=== PATIENT | male | born 1990 | race Two or more races ===

== ENCOUNTER 2023-12-22 08:26 | Inpatient (IN) | payer OTHER ==
[~2023-12-22] VITALS: Ht 180.3 cm; Wt 98.5 kg
[2023-12-22 08:45] VITALS: O2SAT 96
--- NOTE | 2023-12-22 09:12 | ED.PDOC ---
HPI (NEURO) HPI Comments 33-year-old male with no PMHx brought in by EMS presents s/p seizure-acitivity. Per EMS, staff on scene report that patient was asleep in his work truck and then had a "shaking-like activity" lasting approximately 30 seconds to 1 minute. Patient arrives with some oral trauma. Patient denies any history of seizures before in the past. Patient mentions that the last thing he remembers was that he was asleep. Patient is A&Ox4 and answering all questions appropriately. Chief Complaint: Seizure Time Seen by MD: 08:52 Primary Care Provider: NONE Reviewed Notes: Medications, Allergies Information Source: Patient, Emergency Med Personnel Mode of Arrival: EMS Severity: Moderate Headache Severity: None Timing: Minutes Duration: Since onset Prehospital treatment: None Seizure Quality: Shaking Seizure Location: Generalized Onset: At rest Circumstances: Spontaneous History of: None Past Medical History PAST MEDICAL HISTORY: HTN Surgical History: Denies all surgeries Family History Family History: Reviewed,noncontributory to illness Social History Smoker: Non-Smoker Alcohol: Denies ETOH Use Drugs: Denies Drug Use Lives In: Home Constitutional: denies: chills, diaphoresis, fatigue, fever, malaise, sweats, weakness, others EENTM: denies: blurred vision, double vision, ear bleeding, ear discharge, ear drainage, ear pain, ear ringing, eye pain, eye redness, hearing loss, mouth pain, mouth swelling, nasal discharge, nose bleeding, nose congestion, nose pain, photophobia, tearing, throat pain, throat swelling, voice changes, others Respiratory: denies: cough, hemoptysis, orthopnea, SOB at rest, shortness of breath, SOB with excertion, stridor, wheezing, others Cardiovascular: denies: chest pain, dizzy spells, diaphoresis, Dyspnea on exertion, edema, irregular heart beat, left arm pain, lightheadedness, palpitations, PND, syncope, others Gastrointestinal: denies: abdomen distended, abdominal pain, blood streaked bowels, constipated, diarrhea, dysphagia, difficulty swallowing, hematemesis, melena, nausea, poor appetite, poor fluid intake, rectal bleeding, rectal pain, vomiting, others Genitourinary: denies: burning, dysuria, flank pain, frequency, hematuria, incontinence, penile discharge, penile sore, pain, testicle pain, testicle swelling, urgency, others Neurological: reports: seizure; denies: dizziness, fainting, headache, left sided numbness, left sided weakness, numbness, paresthesia, pre-existing deficit, right sided numbness, right sided weakness, speech problems, tingling, tremors, weakness, others Musculoskeletal: denies: back pain, gout, joint pain, joint swelling, muscle pain, muscle stiffness, neck pain, others Integumetry: denies: bruises, change in color, change in hair/nails, dryness, laceration, lesions, lumps, rash, wounds, others Allergic/Immunocompromised: denies: Difficulty Healing, Frequent Infections, Hives, Itching, others Hematologic/Lymphatic: denies: anemia, blood clots, easy bleeding, easy bruising, swollen glands, others Endocrine: denies: excessive hunger, excessive sweating, excessive thirst, excessive urination, flushing, intolerance to cold, intolerance to heat, unexplained weight gain, unexplained weight loss, others Psychiatric: denies: anxiety, bipolar disorder, depression, hopeless, panic disorder, schizophrenia, sleepless, suicidal, others All Other Systems: Reviewed and Negative Physical Exam General Appearance: Mild Distress, Normal, Other (Postictal state) HEENT: Normal ENT Inspection, PERRL/EOMI, Pharynx Normal, TMs Normal, Other (Tongue bite) Neck: Full Range of Motion, Non-Tender, Normal, Normal Inspection Respiratory: Chest Non-Tender, Lungs Clear, No Accessory Muscle Use, No Respiratory Distress, Normal Breath Sounds Cardiovascular: No Edema, No JVD, No Murmur, No Gallop, Normal Peripheral Pulses, Regular Rate/Rhythm Breast Exam: Deferred Gastrointestinal: No Organomegaly, Non Tender, No Pulsatile Mass, Normal Bowel Sounds, Soft Genitalia: Deferred Pelvic: Deferred Rectal: Deferred Extremities: Decreased range of motion, No calf tenderness, Normal capillary refill, Normal inspection, Normal range of motion, No pedal edema, Tender Musculoskeletal : Location: Left Extremity Location: Shoulder Apperance: Deformity, Limited ROM, Tenderness: Moderate, Tenderness: Severe Neurologic: Alert, 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 Was a procedure done?: Yes Sedation Sedation?: Yes Informed consent obtained: Yes Sedation start time: 11:00 Sedation end time: 11:05 Sedation total time: 05 Sedation provider statement: Patient accepted the procedure well Reduction Indication: Dislocation Sedation: Consents obtained, Sedation as ordered Intra-articular anesthetic isidro: No Post-reduction x-ray show: Reduction, Good Alignment Informed consent obtained: Yes Risks/benefits/alt described: Yes Notes Closed reduction complete patient accepted the procedure one Shoulder immobilizing ordered Differential Diagnosis (SZ) Seizure: Hypocalcemia, Hypoglycemia, Hyponatremia, Mass Lesion, Other (1st seizure dislocation left shoulder) CVA: Drug Overdose, Electrolyte Imbalance, Hypoglycemia, Mass Lesion General Weakness: Anemia, Dehydration, Dysrhythmia, Electrolyte imbalance, Hypoglycemia Headache: Mass Lesion, Post-Traumatic X-Ray, Labs, Meds, VS Vital Signs Date Time Temp Pulse Resp B/P (MAP) Pulse Ox O2 Delivery O2 Flow Rate FiO2 12/22/23 18:00 98.7 84 15 115/65 (82) 95 98.7 12/22/23 16:00 81 15 122/65 (84) 97 12/22/23 14:00 98.3 73 11 102/52 (69) 97 98.3 12/22/23 12:00 82 13 112/76 (88) 96 12/22/23 11:10 81 14 120/71 (87) 95 12/22/23 11:05 77 15 123/70 (87) 93 12/22/23 11:00 97.9 83 15 125/83 (97) 93 97.9 12/22/23 10:59 76 13 93 2.0 28 77 16 93 88 93 12/22/23 10:52 75 12/22/23 10:26 78 12/22/23 10:00 72 13 131/89 (103) 96 12/22/23 09:33 78 12/22/23 09:00 68 14 114/56 (75) 98 12/22/23 08:49 98.9 64 15 108/52 (70) 95 98.9 12/22/23 08:45 96 Nasal Cannula* 4 36 12/22/23 08:45 96 Nasal Cannula* 4 36 12/22/23 08:30 98.1 92 18 129/67 (87) 94 Lab Test 12/22/23 16:30 12/22/23 09:49 12/22/23 08:35 Range/Units D-Dimer, Quantitative 3.41 H 0.0-0.49 mg/L FEU White Blood Count 12.0 H 4.4-10.8 10^3/uL Red Blood Count 4.94 4.5-5.90 10^6/uL Hemoglobin 15.7 13.5-17.5 g/dL Hematocrit 46.8 41.0-53.0 % Mean Corpuscular Volume 94.7 80.0-100.0 fL Mean Corpuscular Hemoglobin 31.8 28.0-32.0 pg Mean Corpuscular Hemoglobin Concent 33.6 32.0-36.0 g/dL Red Cell Distribution Width 14.6 H 11.8-14.3 % Platelet Count 231 140-450 10^3/uL Mean Platelet Volume 7.5 6.9-10.8 fL Neutrophils (%) (Auto) 81.7 H 37.0-80.0 % Lymphocytes (%) (Auto) 10.8 10.0-50.0 % Monocytes (%) (Auto) 6.9 0.0-12.0 % Eosinophils (%) (Auto) 0.3 0.0-7.0 % Basophils (%) (Auto) 0.3 0.0-2.0 % Neutrophils # (Auto) 9.8 H 1.6-8.6 10 ^3/uL Lymphocytes # (Auto) 1.3 0.4-5.4 10 ^3/uL Monocytes # (Auto) 0.8 0-1.3 10 ^3/uL Eosinophils # (Auto) 0 0-0.8 10 ^3/uL Basophils # (Auto) 0 0-0.2 10 ^3/uL Nucleated Red Blood Cells 0.0 % Sodium Level 141 136-145 mmol/L Potassium Level 3.9 3.5-5.1 mmol/L Chloride Level 108 H 98-107 mmol/L Carbon Dioxide Level 29 20-31 mmol/L Anion Gap 4 L 5-15 Blood Urea Nitrogen 13 9-23 mg/dL Creatinine 1.29 0.700-1.30 mg/dL Glomerular Filtration Rate Calc 76 >90 mL/min BUN/Creatinine Ratio 10.1 10.0-20.0 Serum Glucose 107 H 74-106 mg/dL Calcium Level 9.6 8.7-10.4 mg/dL Magnesium Level 2.5 1.6-2.6 mg/dL Total Bilirubin 0.6 0.2-1.0 mg/dL Aspartate Amino Transferase (AST) 27 13-40 U/L Alanine Aminotransferase (ALT) 35 7-40 U/L Alkaline Phosphatase 60 46-116 U/L Total Protein 6.9 5.7-8.2 g/dL Albumin 4.4 3.2-4.8 g/dL Plasma/Serum Blood Alcohol < 3.0 <10 mg/dL Urine Color Light-yellow Yellow Urine Clarity Hazy H Clear Urine pH 5.5 5.0-9.0 Urine Specific [place] 1.009 1.001-1.035 Urine Protein 1+ H Negative Urine Ketones Negative Negative Urine Blood 2+ H Negative /uL Urine Nitrite Negative Negative Urine Bilirubin Negative Negative Urine Urobilinogen Normal Negative mg/dL Urine Leukocyte Esterase Negative Negative /uL Urine RBC <1 0 - 3 /hpf Urine WBC 1 0 - 3 /hpf Urine Squamous Epithelial Cells Few <5 /hpf Urine Bacteria Few H None Seen /hpf Urine Hyaline Casts Few 0 - 2 /lpf Urine Mucus Few None Seen Urine Glucose Normal Normal mg/dL Urine Opiates Screen Neg NEGATIVE Urine Fentanyl Screen Neg NEGATIVE Urine Barbiturates Screen Neg NEGATIVE Urine Phencyclidine Screen Neg NEGATIVE Urine Amphetamines Screen Neg NEGATIVE Urine Benzodiazepines Screen Neg NEGATIVE Urine Cocaine Screen Neg NEGATIVE Urine Cannabinoids Screen Neg NEGATIVE Current Medications Medications (Trade) Dose Ordered Sig/Caren Route Start Time Stop Time Status Last Admin Lorazepam (Ativan Inj) 1 mg ONCE ONCE IV 12/22/23 09:00 12/22/23 09:01 DC 12/22/23 09:20 Sodium Chloride 500 ml @ 500 mls/hr Q1H ONCE IVB 12/22/23 09:15 12/22/23 10:14 DC 12/22/23 09:15 Sodium Chloride 1,000 ml @ 150 mls/hr Q6H40M ONCE IV 12/22/23 09:15 12/22/23 15:54 DC 12/22/23 09:15 Midazolam HCl (Versed Injection) 5 mg ONCE ONCE IV 12/22/23 10:30 12/22/23 10:31 DC 12/22/23 11:01 Propofol (Diprivan) 5 mg ONCE ONCE IV 12/22/23 11:30 12/22/23 11:31 DC 12/22/23 11:03 Lorazepam (Ativan Inj) 1 mg ONCE ONCE IV 12/22/23 15:45 12/22/23 15:46 DC 12/22/23 15:43 Acetaminophen/ Hydrocodone Bitart ([place] 5/325MG Tab) 1 tab ONCE ONCE PO 12/22/23 18:00 12/22/23 18:01 DC 12/22/23 18:05 X-Ray, Labs, Meds, VS Comment Course in the emergency department eventful Patient with a 1st seizure disorder found asleep in his bed with a 32nd-1 minute of seizure disorder tonic-clonic Blood pressure 129/67 blood pressure 126 Chest x-ray is normal EKG shows normal sinus rhythm at 78 CT head is normal X-ray to the left shoulder shows inferior anterior [place] [address]33 with 81.7% neutrophils normal H&H Urine shows 1+ protein 2+ blood few bacteria UDS negative ETOH less than 3.0 CMP all normal Magnesium 2.5 Patient was on tramadol for back pain which sometimes can be the cause for seizures Patient started to desaturate and feeling short of breath D-dimer pending patient most probably has pulmonary embolism Dr. Manning to follow up Time of 1ST Reevaluation: 09:22 Reevaluation 1ST: Unchanged Time of 2ND Reevaluation: 11:09 Reevaluation 2ND: Improved Patient Education/Counseling: Diagnosis, Treatment, Prognosis Family Education/Counseling: No Family Present Assigned to Dr. dr manning Change of Shift?: Yes Departure 1 Departure Time of Disposition: 12:38 Impression: Primary Impression: Seizure disorder Additional Impressions: Open wound of tongue due to bite Dislocation, shoulder, anterior Qualified Codes: S43.015A - Anterior dislocation of left humerus, initial encounter Hematuria Qualified Codes: R31.1 - Benign essential microscopic hematuria Chronic back pain Qualified Codes: M54.50 - Low back pain, unspecified; G89.29 - Other chronic pain History of hypertension Disposition: 01 HOME / SELF CARE / HOMELESS Condition: Fair Additional Instructions: You need to follow up with an orthopedist and also a neurologist At this time you can not drive by law until you see the neurologist for clearance You are taking tramadol and that could cause you to have seizures so please stop the tramadol e-Prescriptions Cyclobenzaprine Hcl (Cyclobenzaprine Hcl) 10 Mg Tab 10 MG PO TID for 10 Days, #30 TAB Prov: FATUMA WISE MD 12/22/23 Hydrocodone-Acetaminophen (Hydrocodone Bitartrate/AC 5-325 mg) 1 Tab Tab 1 TAB PO TID for 5 Days, #15 TAB Prov: FATUMA WISE MD 12/22/23 Diclofenac Potassium (Diclofenac Potassium) 50 Mg Tab 1 TAB PO TIDP for 10 Days, #30 TAB Prov: FATUMA WISE MD 12/22/23 Discharged With: Self, Relative, Spouse Critical Care Note Critical Care Time?: No Stability Stability form required: No Heart Score Heart Score: Heart Score Response (Comments) Value History N/A 0 EKG Normal 0 Age <45 0 Risk Factors No known risk factors 0 Troponin N/A 0 Total 0 I personally scribed for FATUMA WISE MD ([email or web address]) on 12/22/23 at 09:11. Electronically submitted by Vu Kumar ([email or web address]). FATUMA WISE MD Dec 22, 2023 09:11
[2023-12-22] MEDS: SODIUM CHLORIDE 0.9% 500 ML IVB ONE (09:15)
[2023-12-22] MEDS: SODIUM CHLORIDE 0.9% 1,000 ML IV ONE (09:15)
[2023-12-22] MEDS: LORazepam 2MG/ML-1ML VIAL IV ONE ×3 (09:19→15:43)
--- NOTE | 2023-12-22 09:38 | DVH ---
PROCEDURE: Left shoulder radiographs. INDICATION: 33 years old, Male; shoulder pain. TECHNIQUE: 2 views of the left shoulder were obtained. COMPARISON: None FINDINGS: There is anterior inferior positioning of the humeral head relative to the glenoid consiste nt with anterior glenohumeral joint dislocation. Question Hill-Sachs lesion. IMPRESSION: 1. Anterior glenohumeral joint dislocation.
--- NOTE | 2023-12-22 09:49 | DVH ---
XY CHEST TWO VIEWS ROUTINE CLINICAL HISTORY: SZ COMPARISON: None TECHNIQUE: Frontal and lateral view of the chest was obtained FINDINGS: Lines and Tubes: None Lungs: No focal consolidation. Pleura: No effusion. No pneumothorax. Cardiomediastinal contours: Unremarkable Bones: No acute osseous abnormality. IMPRESSION: No acute cardiopulmonary disease.
--- NOTE | 2023-12-22 09:52 | DVH ---
EXAM: CT HEAD WITHOUT CONTRAST INDICATION: first sz TECHNIQUE: CT of the head without intravenous contrast. Radiation Dose : 1. Head: CT Dose: CTDI volume is 53.81 mGy. Dose-length product is 971.98 mGy*cm The dose indicators for CT are the volume Computed Tomography (CT) Dose Index (CTDIvol) and the Dose Length Product (DLP), and are measured in units of mGy and mGy-cm, respectively. These indicators are not patient dose, but values generated from the CT scanner acquisition factors. The report includes radiation exposure data for exposures received during this examination. COMPARISON: None FINDINGS: There is no evidence of acute intracranial hemorrhage, extra-axial collection, mass effect, midline s hift, herniation or hydrocephalus. The ventricles, sulci and cisterns are age appropriate. The caceres-white differentiation is intact. The visualized paranasal sinuses and mastoid air cells are clear. The surrounding soft tissues and osseous structures are unremarkable. IMPRESSION: No acute intracranial abnormality.
[2023-12-22 09:54] LABS: Urine Bacteria FEW /hpf (None Seen); Urine Blood 2+ /uL (Negative); Urine Color Light-Yellow (Yellow); Urine Hyaline Cast FEW /lpf (0 - 2); Urine Mucus FEW (None Seen); Urine Protein, UAD 1+ (Negative); Urine Specific Gravity 1.009 (1.001-1.035); Urine Urobilinogen Normal (Negative); Urine WBC 1 /hpf (0 - 3); Urine pH 5.5 (5.0-9.0)
[2023-12-22 09:55] LABS: Amphetamine Screen, Urine Neg (NEGATIVE); Barbiturate Scree,Urine Neg (NEGATIVE); Benzodiazephine Screen, Urine Neg (NEGATIVE); Cocaine Screen, Urine Neg (NEGATIVE); Opiate Scree,Urine Neg (NEGATIVE); Phencyclidine Screen, Urine Neg (NEGATIVE)
[2023-12-22 09:56] LABS: Cannabinoid Screen, Urine Neg (NEGATIVE)
[2023-12-22 10:07] LABS: Urine Clarity Hazy (Clear)
[2023-12-22 10:23] LABS: Alanine Aminotransferase 35 U/L (7-40); Albumin 4.4 g/dL (3.2-4.8); Alkaline Phosphatase 60 U/L (46-116); Anion Gap 4 (5-15); Aspartate Aminotransferase 27 U/L (13-40); BUN/Creatinine Ratio 10.1 (10.0-20.0); Blood Alcohol < 3.0 mg/dL (<10); Blood Urea Nitrogen 13 mg/dL (9-23); Calcium 9.6 mg/dL (8.7-10.4); Carbon Dioxide 29 mmol/L (20-31); Chloride 108 mmol/L (98-107); Glucose 107 mg/dL (74-106); Magnesium 2.5 mg/dL (1.6-2.6); Potassium 3.9 mmol/L (3.5-5.1); Sodium 141 mmol/L (136-145)
[2023-12-22 10:24] LABS: Bilirubin, Total 0.6 mg/dL (0.2-1.0); Total Protein 6.9 g/dL (5.7-8.2)
[2023-12-22 10:28] LABS: Basophils # (auto) 0 10 ^3/uL (0-0.2); Basophils % (auto) 0.3 % (0.0-2.0); Eosinophils # (auto) 0 10 ^3/uL (0-0.8); Eosinophils % (auto) 0.3 % (0.0-7.0); Hematocrit 46.8 % (41.0-53.0); Hemoglobin 15.7 g/dL (13.5-17.5); Lymphocytes # (auto) 1.3 10 ^3/uL (0.4-5.4); Lymphocytes % (auto) 10.8 % (10.0-50.0); Mean Corpuscular Hemoglobin 31.8 pg (28.0-32.0); Mean Corpuscular Hgb Conc. 33.6 g/dL (32.0-36.0); Mean Corpuscular Volume 94.7 fL (80.0-100.0); Monocytes # (auto) 0.8 10 ^3/uL (0-1.3); Monocytes % (auto) 6.9 % (0.0-12.0); Neutrophils # (auto) 9.8 10 ^3/uL (1.6-8.6); Neutrophils % (auto) 81.7 % (37.0-80.0); Platelet Count (auto) 231 10^3/uL (140-450); Red Blood Cells 4.94 10^6/uL (4.5-5.90); Red Cell Distribution Width 14.6 % (11.8-14.3)
[2023-12-22] MEDS ORDERED: PROPOFOL 10 MG/ML 20 ML IV ONE (10:30)
[2023-12-22] MEDS: MIDAZOLAM HCL 5 MG/ML-1ML VIAL IV ONE (11:01)
[2023-12-22] MEDS: PROPOFOL 10 MG/ML 20 ML IV ONE (11:03)
--- NOTE | 2023-12-22 11:40 | DVH ---
CLINICAL INDICATION: s/p reduction TECHNIQUE: 2 radiographic views of the left shoulder were obtained. Comparison: XY L SHOULDER 2+ VIEW XRAY on DOS: 12/22/23 FINDINGS/IMPRESSION: Interval reduction of previously seen dislocation. Hill-Sachs deformity is visualized.
[2023-12-22] MEDS ORDERED: HYDR-4902 PO (12:49)
[2023-12-22] MEDS ORDERED: DICL50TA2 PO (12:49)
[2023-12-22] MEDS ORDERED: CYCL-839 PO (12:49)
[2023-12-22] MEDS ORDERED: diphenhdrAMINE HCL 50 MG/1 ML VL IV ONE (15:45)
[2023-12-22] MEDS: HYDROcodone-ACET 5/325MG TAB PO ONE (18:05)
--- NOTE | 2023-12-22 18:50 | ED.PDOC ---
Departure 1 Departure Time of Disposition: 18:48 (Patient is signed out to me pending further workup. Patient with 1st onset seizure. We will admit patient for further workup) Impression: Primary Impression: Seizure disorder Additional Impressions: Open wound of tongue due to bite Hematuria Qualified Codes: R31.1 - Benign essential microscopic hematuria Chronic back pain Qualified Codes: M54.50 - Low back pain, unspecified; G89.29 - Other chronic pain History of hypertension Dislocation, shoulder, anterior Qualified Codes: S43.015A - Anterior dislocation of left humerus, initial encounter Disposition: ADMITTED INPATIENT Admit to: Med Surg Condition: Serious Additional Instructions: You need to follow up with an orthopedist and also a neurologist At this time you can not drive by law until you see the neurologist for clearance You are taking tramadol and that could cause you to have seizures so please stop the tramadol e-Prescriptions Cyclobenzaprine Hcl (Cyclobenzaprine Hcl) 10 Mg Tab 10 MG PO TID for 10 Days, #30 TAB Prov: FATUMA WISE MD 12/22/23 Hydrocodone-Acetaminophen (Hydrocodone Bitartrate/AC 5-325 mg) 1 Tab Tab 1 TAB PO TID for 5 Days, #15 TAB Prov: FATUMA WISE MD 12/22/23 Diclofenac Potassium (Diclofenac Potassium) 50 Mg Tab 1 TAB PO TIDP for 10 Days, #30 TAB Prov: FATUMA WISE MD 12/22/23 Discharged With: Self, Relative, Spouse ANTHONY HODGE MD Dec 22, 2023 18:50
[2023-12-22] MEDS: IOHEXOL 350 MG/ML 100ML IJ ONE (19:19)
--- NOTE | 2023-12-22 19:27 | DVHHP2 ---
History of Present Illness Reason for Visit: Seizure disorder History of Present Illness The patient is a 33-year-old male with past medical history of hypertension presented to [facility] ED for evaluation of seizures activity. As reported by EMS, staff on the scene reports that patient was sleeping in his truck when he had a shaking-like activity lasting a proximally 30 seconds to 1 minute with sustained oral trauma and left shoulder deformity. Patient unable to recall event, denies history of seizures before in the past. Patient was seen and evaluated in the ED, laboratory data shows elevated WBC 12.0, platelets 231, sodium 141, potassium 3.9, BUN 13, creatinine 1.29, glucose 107, D-dimer 3.41. Left shoulder x-ray revealing anterior glenohumeral joint dislocation, repeated with Interval reduction of previously seen dislocation after intervention. CT Angiography revealing suboptimal contrast opacification of the main pulmonary artery, no central pulmonary emboli, aortic aneurysm, dissection; can not exclude similar segmental or subsegmental embolism; scattered tree in bud ground-glass nodules in both lungs, most prominent in the left lower lobe favor an infectious/inflammatory etiology; age indeterminate mild anterior wedge shaped compression fracture of T6 and T8. Please see medication orders section in the computer. On my assessment, at bedside, patient denied chest pain, no headache, no dizziness, no diaphoresis, no loss of consciousness, no shortness of breath, no nausea, no vomiting, no fever, no chills. Patient was admitted for further evaluation and medical management. Past Medical History HTN Past Surgical History Denies all surgeries Family History Reviewed, noncontributory to the management of this case. Past Social History The patient lives at home, denies smoking, alcohol or illicit drugs abuse. Review of Systems Constitutional: No: Fever, Chills, Sweats, Weakness, Malaise, Other Eyes: No: Pain, Vision change, Conjunctivae inflammation, Eyelid inflammation, Other, Redness ENT: No: Ear pain, Ear discharge, Nose pain, Nose discharge, Nose congestion, Mouth pain, Mouth swelling, Throat pain, Throat swelling, Other Respiratory: No: Cough, Dry, Shortness of breath, SOB with excertion, Wheezing, Hemoptysis, Pleuritic Pain, Sputum, Wheezing, Other Cardiovascular: No: Chest Pain, Palpitations, Orthopnea, Paroxysmal Noc. Dyspnea, Edema, Lt Headedness, Other Gastrointestinal: No: Nausea, Vomiting, Abdominal Pain, Diarrhea, Constipation, Melena, Hematochezia, Other Genitourinary: No Dysuria, No Frequency, No Incontinence, No Hematuria, No Retention, No Other Musculoskeletal: shoulder pain (Left), back pain (Low); No: other, neck pain, arm pain, hand pain, leg pain, foot pain Skin: No: Rash, Lesions, Jaundice, Bruising, Other Neurological: Seizures; No: Weakness, Numbness, Incoordination, Change in speech, Confusion, Other Allergies: Coded Allergies: No Known Drug Allergy (Verified Allergy, Unknown, 12/22/23) Medications Current Medications Medications Dose Ordered Sig/Caren Route Start Time Stop Time Status Last Admin Dose Admin Lorazepam 1 mg Q1HP PRN IV 12/22/23 19:30 UNV Sodium Chloride 10 ml Q8HR IV 12/22/23 22:00 UNV Acetaminophen/ Hydrocodone Bitart 1 tab Q4HP PRN PO 12/22/23 19:30 UNV Ondansetron HCl 4 mg Q4HP PRN IV 12/22/23 19:30 UNV Docusate Sodium 100 mg BIDPRN PRN PO 12/22/23 19:30 UNV Acetaminophen 650 mg Q6HP PRN PO 12/22/23 19:30 UNV Exam Vital Signs Vital Signs Date Time Temp Pulse Resp B/P (MAP) Pulse Ox O2 Delivery O2 Flow Rate FiO2 12/22/23 18:00 98.7 84 15 115/65 (82) 95 98.7 12/22/23 10:59 2.0 28 12/22/23 08:45 Nasal Cannula* General Appearance: Alert, Oriented X3, Cooperative, No acute distress HEENT: Atraumatic, PERRLA, EOMI, Mucous membr. moist/pink Respiratory: Clear to auscultation, Normal air movement Cardiovascular: Regular rate, Normal S1, Normal S2, No murmurs Abdominal: Normal bowel sounds, Soft, No tenderness, No hepatospenomegaly, No masses Extremities: No clubbing, No cyanosis, No edema, Normal pulses, Other (Left shoulder tenderness) Skin: No rashes, No breakdown, No significant lesion Neuro: Normal speech, Normal tone, Sensation intact, Cranial nerves 3-12 NL, Reflexes 2+ Psych/Mental Status: Mental status NL, Mood NL Labs/Xrays Labs Test 12/22/23 16:30 12/22/23 09:49 12/22/23 08:35 Range/Units D-Dimer, Quantitative 3.41 H 0.0-0.49 mg/L FEU White Blood Count 12.0 H 4.4-10.8 10^3/uL Red Blood Count 4.94 4.5-5.90 10^6/uL Hemoglobin 15.7 13.5-17.5 g/dL Hematocrit 46.8 41.0-53.0 % Mean Corpuscular Volume 94.7 80.0-100.0 fL Mean Corpuscular Hemoglobin 31.8 28.0-32.0 pg Mean Corpuscular Hemoglobin Concent 33.6 32.0-36.0 g/dL Red Cell Distribution Width 14.6 H 11.8-14.3 % Platelet Count 231 140-450 10^3/uL Mean Platelet Volume 7.5 6.9-10.8 fL Neutrophils (%) (Auto) 81.7 H 37.0-80.0 % Lymphocytes (%) (Auto) 10.8 10.0-50.0 % Monocytes (%) (Auto) 6.9 0.0-12.0 % Eosinophils (%) (Auto) 0.3 0.0-7.0 % Basophils (%) (Auto) 0.3 0.0-2.0 % Neutrophils # (Auto) 9.8 H 1.6-8.6 10 ^3/uL Lymphocytes # (Auto) 1.3 0.4-5.4 10 ^3/uL Monocytes # (Auto) 0.8 0-1.3 10 ^3/uL Eosinophils # (Auto) 0 0-0.8 10 ^3/uL Basophils # (Auto) 0 0-0.2 10 ^3/uL Nucleated Red Blood Cells 0.0 % Sodium Level 141 136-145 mmol/L Potassium Level 3.9 3.5-5.1 mmol/L Chloride Level 108 H 98-107 mmol/L Carbon Dioxide Level 29 20-31 mmol/L Anion Gap 4 L 5-15 Blood Urea Nitrogen 13 9-23 mg/dL Creatinine 1.29 0.700-1.30 mg/dL Glomerular Filtration Rate Calc 76 >90 mL/min BUN/Creatinine Ratio 10.1 10.0-20.0 Serum Glucose 107 H 74-106 mg/dL Calcium Level 9.6 8.7-10.4 mg/dL Magnesium Level 2.5 1.6-2.6 mg/dL Total Bilirubin 0.6 0.2-1.0 mg/dL Aspartate Amino Transferase (AST) 27 13-40 U/L Alanine Aminotransferase (ALT) 35 7-40 U/L Alkaline Phosphatase 60 46-116 U/L Total Protein 6.9 5.7-8.2 g/dL Albumin 4.4 3.2-4.8 g/dL Plasma/Serum Blood Alcohol < 3.0 <10 mg/dL Urine Color Light-yellow Yellow Urine Clarity Hazy H Clear Urine pH 5.5 5.0-9.0 Urine Specific [place] 1.009 1.001-1.035 Urine Protein 1+ H Negative Urine Ketones Negative Negative Urine Blood 2+ H Negative /uL Urine Nitrite Negative Negative Urine Bilirubin Negative Negative Urine Urobilinogen Normal Negative mg/dL Urine Leukocyte Esterase Negative Negative /uL Urine RBC <1 0 - 3 /hpf Urine WBC 1 0 - 3 /hpf Urine Squamous Epithelial Cells Few <5 /hpf Urine Bacteria Few H None Seen /hpf Urine Hyaline Casts Few 0 - 2 /lpf Urine Mucus Few None Seen Urine Glucose Normal Normal mg/dL Urine Opiates Screen Neg NEGATIVE Urine Fentanyl Screen Neg NEGATIVE Urine Barbiturates Screen Neg NEGATIVE Urine Phencyclidine Screen Neg NEGATIVE Urine Amphetamines Screen Neg NEGATIVE Urine Benzodiazepines Screen Neg NEGATIVE Urine Cocaine Screen Neg NEGATIVE Urine Cannabinoids Screen Neg NEGATIVE PATIENT: GIOVANY BRIDGES ACCT: [id number] UNIT: [id number] : 1990 LOC: ER ROOM / BED: / AGE / SEX: 33 / M ADM STATUS: REG ER SERVICE 0911 ORDERING PHYSICIAN: FATUMA WISE MD PROCEDURE(s): HWOCT - HEAD WITHOUT CONTRAST REASON: first sz ORDER NUMBER(s): [id number], ACCESSION NUMBER(s): [id number] EXAM: CT HEAD WITHOUT CONTRAST INDICATION: first sz TECHNIQUE: CT of the head without intravenous contrast. Radiation Dose : 1. Head: CT Dose: CTDI volume is 53.81 mGy. Dose-length product is 971.98 mGy*cm The dose indicators for CT are the volume Computed Tomography (CT) Dose Index (CTDIvol) and the Dose Length Product (DLP), and are measured in units of mGy and mGy-cm, respectively. These indicators are not patient dose, but values generated from the CT scanner acquisition factors. The report includes radiation exposure data for exposures received during this examination. COMPARISON: None FINDINGS: There is no evidence of acute intracranial hemorrhage, extra-axial collection, mass effect, midline shift, herniation or hydrocephalus. The ventricles, sulci and cisterns are age appropriate. The caceres-white differentiation is intact. The visualized paranasal sinuses and mastoid air cells are clear. The surrounding soft tissues and osseous structures are unremarkable. IMPRESSION: No acute intracranial abnormality. ORDERING PHYSICIAN: FATUMA WISE MD PROCEDURE(s): LSHD2 - L SHOULDER 2+ VIEW XRAY REASON: shoulder pain ORDER NUMBER(s): [id number], ACCESSION NUMBER(s): [id number] PROCEDURE: Left shoulder radiographs. INDICATION: 33 years old, Male; shoulder pain. TECHNIQUE: 2 views of the left shoulder were obtained. COMPARISON: None FINDINGS: There is anterior inferior positioning of the humeral head relative to the glenoid consistent with anterior glenohumeral joint dislocation. Question Hill-Sachs lesion. IMPRESSION: 1. Anterior glenohumeral joint dislocation. ORDERING PHYSICIAN: FATUMA WISE MD PROCEDURE(s): LSHD2 - L SHOULDER 2+ VIEW XRAY REASON: s/p reduction ORDER NUMBER(s): [id number], ACCESSION NUMBER(s): [id number] CLINICAL INDICATION: s/p reduction TECHNIQUE: 2 radiographic views of the left shoulder were obtained. Comparison: XY L SHOULDER 2+ VIEW XRAY on DOS: 12/22/23 FINDINGS/IMPRESSION: Interval reduction of previously seen dislocation. Hill-Sachs deformity is visualized. ORDERING PHYSICIAN: FATUMA WISE MD PROCEDURE(s): CXR2 - CHEST TWO VIEWS ROUTINE REASON: ORDER NUMBER(s): [id number], ACCESSION NUMBER(s): [id number] CHEST TWO VIEWS ROUTINE CLINICAL HISTORY: SZ COMPARISON: None TECHNIQUE: Frontal and lateral view of the chest was obtained FINDINGS: Lines and Tubes: None Lungs: No focal consolidation. Pleura: No effusion. No pneumothorax. Cardiomediastinal contours: Unremarkable Bones: No acute osseous abnormality. IMPRESSION: No acute cardiopulmonary disease. ORDERING PHYSICIAN: FATUMA WISE MD PROCEDURE(s): CTACH - CT ANGIO CHEST CONTRAST REASON: Pulmonary embolism D-dimer elevated with a shortness of tami ORDER NUMBER(s): [id number], ACCESSION NUMBER(s): [id number] EXAM: CT CT ANGIO CHEST CONTRAST History: Pulmonary embolism D-dimer elevated with a shortness of tami Comparison Study: None TECHNIQUE: A digital pulp and paper tester image was obtained. During the uneventful, intravenous administration of contrast material, multislice data acquisition was obtained through the chest. 3-D postprocessing is performed by technologist including MIP imaging Radiation Dose : CTDI vol 22.0 mGy, DLP 721.73 mGy*cm. Findings: Lungs: Scattered tree in bud ground-glass nodules in both lungs, most prominent in the left lower lobe. Pleura: Unremarkable Heart/Great vessels: The visualized heart is unremarkable. No cardiomegaly or pericardial effusion. Suboptimal contrast opacification of the main pulmonary artery. No central pulmonary emboli, aortic aneurysm, or dissection. Mediastinum: Age indeterminate mild anterior wedge shaped compression fractures of T6 and T8. Soft tissues/Bones: Unremarkable The partially visualized upper abdomen is within normal limits. Impression: 1. Suboptimal contrast opacification of the main pulmonary artery. No central pulmonary emboli, aortic aneurysm, or dissection. Cannot exclude smaller segmental or subsegmental embolism. 2. Scattered tree in bud ground-glass nodules in both lungs, most prominent in t he left lower lobe favor an infectious/inflammatory etiology. 3. Age indeterminate mild anterior wedge shaped compression fractures of T6 and T8. Assessment/Plan Assessment/Plan Seizure disorder Open wound of tongue due to bite Dislocation, shoulder, anterior Elevated D-dimer Benign essential microscopic hematuria Chronic back pain Leukocytosis, unspecified Low back pain, unspecified Anterior dislocation of left humerus, initial encounter History of hypertension Plan 1. Admit to telemetry unit 2. Breathing treatment 3. Pain control management 4. IV antibiotic management 5. Management of fluids and electrolytes 6. Consultation for Neurology 7. Diagnostic test head CT 8. DVT prophylaxis-on Lovenox 9. Repeat labs CBC, CMP in a.m. 10. Interval reduction of previously seen dislocation 11. Continue with current medical management 12. Treatment plan discussed with patient and RN. Patient/ verbalized understanding. Plan discussed with: Patient, Spouse (), Other (RN) My Orders Orders - KATELYN VAZQUEZ DNP Procedure Category Date Status Time * Neurology Consult CONS 12/22/23 Transmitted 19:22 Lorazepam 2mg/Ml Inj PHA 12/22/23 Logged (Ativan Inj) 19:30 Allergies CHATO 12/22/23 In Process 19:22 Code Status CODE 12/22/23 Transmitted 19:22 2 Gm Sodium Diet DIET 12/23/23 Transmitted Breakfast Sodium Chloride Lock PHA 12/22/23 Logged (Saline Lock Ns) 22:00 Oxygen Per Hour RT 12/22/23 Transmitted 19:22 Hydrocodone-Acet PHA 12/22/23 Logged 5/325mg Tab ([place] 19:30 Ondansetron Hcl PHA 12/22/23 Logged (Zofran) 19:30 Docusate Sodium PHA 12/22/23 Logged Capsule ([place] 19:30 Fall Risk Precautions CHATO 12/22/[address] 19:22 Complete Blood Count LAB 12/23/23 Verified 04:00 Comprehensive LAB 12/23/23 Verified Metabolic Panel 04:00 Condition: Serious CHATO 12/22/23 In Process 19:22 Acetaminophen Tablet PHA 12/22/23 Logged (Tylenol Tablet) 19:30 Maintain Bed Rest CHATO 12/22/23 In Process 19:22 Sequential CHATO 12/22/23 In Process Compression Device Problem List: (1) Seizure disorder (2) Open wound of tongue due to bite (3) Dislocation, shoulder, anterior (4) Chronic back pain (5) Elevated d-dimer (6) Leukocytosis, unspecified (7) Benign essential microscopic hematuria (8) Low back pain, unspecified (9) Anterior dislocation of left humerus, initial encounter (10) History of hypertension Date of Service: Dec 22, 2023 Billing Provider: KATELYN VAZQUEZ DNP Common Visit Codes: [id number] INP/OBS CARE (HIGH) KATELYN VAZQUEZ DNP Dec 22, 2023 19:27
[2023-12-22] MEDS ORDERED: MORPHINE SULFATE INJ 2 MG/ml SYRG IV PRN (19:30)
[2023-12-22] MEDS ORDERED: DOCUSATE SOD 100 MG CAP PO PRN (19:30)
[2023-12-22] MEDS ORDERED: NITROGLYCERIN 0.4 MG SL TAB SL PRN (19:30)
[2023-12-22] MEDS ORDERED: ONDANSETRON HCL 4 MG/2 ML VIAL IV PRN (19:30)
[2023-12-22] MEDS ORDERED: ACETAMINOPHEN 325 MG TAB PO PRN (19:30)
[2023-12-22] MEDS: MORPHINE SULFATE 4 MG/ML SYR/VIAL IV ONE (19:45)
--- NOTE | 2023-12-22 19:52 | DVH ---
EXAM: CT CT ANGIO CHEST CONTRAST History: Pulmonary embolism D-dimer elevated with a shortness of tami Comparison Study: None TECHNIQUE: A digital regular senior care provider image was obtained. During the uneventful, intravenous administration of c ontrast material, multislice data acquisition was obtained through the chest. 3-D postprocessing is performed by technologist including MIP imaging Radiation Dose : CTDI vol 22.0 mGy, DLP 721.73 mGy*cm. Findings: Lungs: Scattered tree in bud groundglass nodules in both lungs, most prominent in the left lower lobe . Pleura: Unremarkable Heart/Great vessels: The visualized heart is unremarkable. No cardiomegaly or pericardial effusion. S uboptimal contrast opacification of the main pulmonary artery. No central pulmonary emboli, aortic an eurysm, or dissection. Mediastinum: Age indeterminate mild anterior wedge shaped compression fractures of T6 and T8. Soft tissues/Bones: Unremarkable The partially visualized upper abdomen is within normal limits. Impression: 1. Suboptimal contrast opacification of the main pulmonary artery. No central pulmonary emboli, aorti c aneurysm, or dissection. Cannot exclude smaller segmental or subsegmental embolism. 2. Scattered tree in bud groundglass nodules in both lungs, most prominent in the left lower lobe fav or an infectious/inflammatory etiology. 3. Age indeterminate mild anterior wedge shaped compression fractures of T6 and T8.
[2023-12-22] MEDS: SODIUM CHLOR 0.9% PF (SALINE LOCK) 10ML VIAL/SYR IV SCH (21:04)
[2023-12-22] MEDS: KETOROLAC TROMETH 30 MG/ML 1ML VIAL IV ONE (21:10)
[2023-12-22] MEDS: cefTRIAXone 1GM/50ML D5W 50 ML IV ONE (21:12)
[2023-12-22] MEDS: ENOXAPARIN SOD 40 MG/0.4 ML SYRINGE SC ONE (21:13)
[2023-12-22 23:09] VITALS: BP 150/78; PULSE 87; RESP 16; TEMP 98.2; O2SAT 97
[2023-12-22] MEDS: HYDROcodone-ACET 5/325MG TAB PO PRN (23:20)
[2023-12-22 23:22] VITALS: BP 150/78; PULSE 87; RESP 16; TEMP 98.2; O2SAT 97
[2023-12-23] VITALS (9 sets, daily range): BP systolic 115–146; BP diastolic 67–82; PULSE 70–109; RESP 16–21; TEMP 98.1–99.1; O2SAT 95–99
[2023-12-23] MEDS: KETOROLAC TROMETH 30 MG/ML 1ML VIAL IV ONE (02:00)
[2023-12-23] MEDS: LORazepam 2MG/ML-1ML VIAL IV PRN (02:23)
--- NOTE | 2023-12-23 07:11 | ECG ---
[facility] Test Date: 2023-12-22 Test Time: 09:33:39 Pat Name: GIOVANY BRIDGES Department: ER Room: 0279T A Gender: M Monitoring Coordinator: LINDA : 1990 Requested By: FATUMA WISE Order Number: [id number] Reading MD: Aly Burroughs Measurements Intervals [place] Rate: 78 P: 28 WA: 141 QRS: 31 QRSD: 97 T: -16 QT: 393 QTc: 448 Interpretive Statements Sinus rhythm Borderline repolarization abnormality Baseline wander in lead(s) V5 Electronically Signed On 12-25-2023 11:16:08 PST by Aly Burroughs Please click the below link to view image of tracing.
[2023-12-23] MEDS: cefTRIAXone 1GM/50ML D5W 50 ML IV SCH (08:37)
[2023-12-23] MEDS: ENOXAPARIN SOD 40 MG/0.4 ML SYRINGE SC SCH (08:39)
[2023-12-23 10:45] LABS: Basophils # (auto) 0 10 ^3/uL (0-0.2); Basophils % (auto) 0.3 % (0.0-2.0); Eosinophils # (auto) 0.1 10 ^3/uL (0-0.8); Eosinophils % (auto) 0.7 % (0.0-7.0); Hematocrit 44.2 % (41.0-53.0); Hemoglobin 15.1 g/dL (13.5-17.5); Lymphocytes # (auto) 1.1 10 ^3/uL (0.4-5.4); Lymphocytes % (auto) 14.5 % (10.0-50.0); Mean Corpuscular Hemoglobin 31.9 pg (28.0-32.0); Mean Corpuscular Hgb Conc. 34.1 g/dL (32.0-36.0); Mean Corpuscular Volume 93.5 fL (80.0-100.0); Monocytes # (auto) 0.8 10 ^3/uL (0-1.3); Monocytes % (auto) 10.2 % (0.0-12.0); Neutrophils # (auto) 5.7 10 ^3/uL (1.6-8.6); Neutrophils % (auto) 74.3 % (37.0-80.0); Nucleated Red Blood Cells % 0.1 %; Platelet Count (auto) 222 10^3/uL (140-450); Red Blood Cells 4.73 10^6/uL (4.5-5.90); Red Cell Distribution Width 14.6 % (11.8-14.3); White Blood Cell 7.7 10^3/uL (4.4-10.8)
[2023-12-23 10:57] LABS: Alanine Aminotransferase 41 U/L (7-40); Alkaline Phosphatase 50 U/L (46-116); Anion Gap 6 (5-15); Aspartate Aminotransferase 44 U/L (13-40); BUN/Creatinine Ratio 7.5 (10.0-20.0); Blood Urea Nitrogen 8 mg/dL (9-23); Calcium 9.2 mg/dL (8.7-10.4); Carbon Dioxide 26 mmol/L (20-31); Chloride 107 mmol/L (98-107); Glucose 85 mg/dL (74-106); Potassium 3.7 mmol/L (3.5-5.1); Sodium 139 mmol/L (136-145)
[2023-12-23 10:58] LABS: Bilirubin, Total 0.9 mg/dL (0.2-1.0); Total Protein 6.4 g/dL (5.7-8.2)
--- NOTE | 2023-12-23 12:40 | DVHPN2 ---
Reviewed: Care Plan, H&P, Labs, Medications, Previous Orders, Radiology Changes from previous H/P or p: No Changes Eyes: No Pain, No Vision change, No Conjunctivae inflammation, No Eyelid inflammation, No Other, No Redness ENT: No Ear pain, No Ear discharge, No Nose pain, No Nose discharge, No Nose congestion, No Mouth pain, No Mouth swelling, No Throat pain, No Throat swelling, No Other Cardiovascular: No Chest Pain, No Palpitations, No Orthopnea, No Paroxysmal Noc. Dyspnea, No Edema, No Lt Headedness, No Other Respiratory: No Cough, No Dry, No Shortness of breath, No SOB with excertion, No Wheezing, No Hemoptysis, No Pleuritic Pain, No Sputum, No Other Gastrointestinal: No Nausea, No Vomiting, No Abdominal Pain, No Diarrhea, No Constipation, No Melena, No Hematochezia, No Other Genitourinary: No Dysuria, No Frequency, No Incontinence, No Hematuria, No Retention, No Other Musculoskeletal: No other, No neck pain; shoulder pain (Left); No arm pain; b ack pain (Low); No hand pain, No leg pain, No foot pain Skin: No Rash, No Lesions, No Jaundice, No Bruising, No Other Objective Vitals Vital Signs Date Time Temp Pulse Resp B/P (MAP) Pulse Ox O2 Delivery O2 Flow Rate FiO2 12/23/23 09:02 98.9 95 18 118/78 (91) 97 98.9 12/22/23 23:22 Room Air* 0 21 Intake/Output Intake and Output 12/23/23 07:00 Intake Total 550 ml Balance 550 ml Intake Oral 0 ml IV Total 550 ml Medications Current Medications Medications Dose Ordered Sig/Caren Route Start Time Stop Time Status Last Admin Dose Admin Lorazepam 1 mg Q1HP PRN IV 12/22/23 19:30 12/23/23 08:40 1 MG Sodium Chloride 10 ml Q8HR IV 12/22/23 22:00 12/23/23 06:06 10 ML Acetaminophen/ Hydrocodone Bitart 1 tab Q4HP PRN PO 12/22/23 19:30 12/23/23 11:56 1 TAB Ondansetron HCl 4 mg Q4HP PRN IV 12/22/23 19:30 Docusate Sodium 100 mg BIDPRN PRN PO 12/22/23 19:30 Acetaminophen 650 mg Q6HP PRN PO 12/22/23 19:30 Nitroglycerin 0.4 mg Q5MINP PRN SL 12/22/23 19:30 Morphine Sulfate 2 mg Q30M PRN IV 12/22/23 19:30 Enoxaparin Sodium 40 mg DAILY SC 12/23/23 10:00 12/23/23 08:39 40 MG Ceftriaxone Sodium 50 ml @ 100 mls/hr DAILY@09 IV 12/23/23 09:00 12/23/23 08:37 100 MLS/HR Laboratory Results Laboratory Tests 12/23/23 09:59 Chemistry Test 12/23/23 09:59 Albumin 4.0 g/dL (3.2-4.8) Calcium Level 9.2 mg/dL (8.7-10.4) Total Protein 6.4 g/dL (5.7-8.2) Coagulation Test 12/22/23 16:30 D-Dimer, Quantitative 3.41 mg/L FEU (0.0-0.49) H LFT Test 12/23/23 09:59 Alanine Aminotransferase (ALT) 41 U/L (7-40) H Alkaline Phosphatase 50 U/L (46-116) Aspartate Amino Transferase (AST) 44 U/L (13-40) H Total Bilirubin 0.9 mg/dL (0.2-1.0) Urinalysis Test 12/22/23 08:35 Urine Color Light-yellow (Yellow) Urine Clarity Hazy (Clear) H Urine pH 5.5 (5.0-9.0) Urine Specific [place] 1.009 (1.001-1.035) Urine Protein 1+ (Negative) H Urine Ketones Negative (Negative) Urine Blood 2+ /uL (Negative) H Urine Nitrite Negative (Negative) Urine Bilirubin Negative (Negative) Urine Urobilinogen Normal mg/dL (Negative) Urine Leukocyte Esterase Negative /uL (Negative) Urine RBC <1 /hpf (0 - 3) Urine WBC 1 /hpf (0 - 3) Urine Squamous Epithelial Cells Few /hpf (<5) Urine Bacteria Few /hpf (None Seen) H Urine Hyaline Casts Few /lpf (0 - 2) Urine Mucus Few (None Seen) Urine Glucose Normal mg/dL (Normal) Labs and/or images reviewed: Labs reviewed by me, Image(s) reviewed by me Assessment/Plan Assessment/Plan New onset seizures: Ativan p.r.n., CT head negative, Neurology consult for Dr. Rodriguez Open wound of tongue due to bite Anterior dislocation left shoulder status post relocation in the emergency room Chronic back pain Elevated D-dimer 3.2: PE ruled out Possible aspiration pneumonia left lower lobe: Rocephin IV doxycycline p.o. Hypertension Chronic alcohol abuse Urine Drug screen negative Possible alcoholic withdrawal seizures History of left ventricular hypertrophy: Echocardiogram cardiology consult Plan discussed with: Patient My Orders Orders - EDIL VARGAS MD Procedure Category Date Status Time * Neurology Consult CONS 12/23/23 Transmitted 12:28 Doxycycline Tablet PHA 12/23/23 Verified (Vibramycin Tablet) 22:00 Doxycycline Tablet PHA 12/23/23 Verified (Vibramycin Tablet) 12:45 Date of Service: Dec 23, 2023 Billing Provider: EDIL VARGAS MD Common Visit Codes: [id number] INP/OBS CARE(HIGH) EDIL VARGAS MD Dec 23, 2023 12:40
[2023-12-23] MEDS: DOXYCYCLINE 100 MG TAB/CAP PO ONE (12:43)
--- NOTE | 2023-12-23 14:51 | DVHSR ---
APPROVED REPORT EXAM: Two-dimensional and M-mode echocardiogram with Doppler and color Doppler. Blood Pressure: 144/82 mmHg INDICATION History of enlarged left ventricle RISK FACTORS Height: 70, Weight: 217 DIMENSIONS LVDd5.2 (3.8-5.7cm)LA (2D)3.4 (1.9-4.0cm)Aortic Root3.7 (2.0-3.7cm) LVDs3.6 (2.5-4.0cm)LA (MM) (1.9-4.0cm)Aortic Cusp Exc2.0 (1.5-2.0cm) EF (%) 60.0 (55-70%)Rt. Atrium4.3 (1.9-4.0cm)Asc. Aorta cm IVSd1.2 (0.7-1.1cm)RV (D) (1.8-2.4cm) PWd1.3 (0.7-1.1cm) Mitral Valve MitralMitral Stenosis E wave0.61m/sMV Mean GR.mmHg A wave0.76m/sMV Peak GR.mmHg E/A ratio0.82D MVAcm2 DECEL [id number] 1/2 Prru57wk IVRTmsDop MVA3.85cm2 Aortic Valve Aortic ValveAortic Stenosis V11.10m/Robert Mean GR.4mmHg V21.45m/Robert Peak GR.8mmHg LVOT Diameter2.5 (1.8-2.4cm)Doppler AVA3.72cm2 Pulmonic Valve V21.07m/s Other Information Technically limited study due to patient laying flat on his back due to dislocated left shoulder. Conclusion Normal left ventricular size and dimension. Normal left ventricular systolic function estimated ejec tion fraction of 60%. There is a grade 1 diastolic dysfunction. Normal right ventricular size and dimension. Normal right ventricular systolic function. Normal biatrial size and dimension. Normal aortic valve structure and function. Normal mitral valve structure and function. Normal tricuspid valve function. The pulmonary valve is grossly normal. No pericardial effusion.
--- NOTE | 2023-12-23 17:05 | DVHINCON2 ---
Date of service: Dec 23, 2023 History of Present Illness HPI Patient is a 33-year-old gentleman who presented to the hospital for seizure activity. Cardiology was involved for cardiac aspects of care. Patient is known to our office and comes to our practice as outpatient. There has been no report of chest pain/shortness of breath. Has been no report of leg swellings/dyspnea on exertion/palpitations. There is questionable history of left ventricle hypertrophy (borderline). Home Meds Active Scripts Cyclobenzaprine Hcl (Cyclobenzaprine Hcl) 10 Mg Tab, 10 MG PO TID for 10 Days, #30 TAB Prov:FATUMA WISE MD 12/22/23 Hydrocodone-Acetaminophen (Hydrocodone Bitartrate/AC 5-325 mg) 1 Tab Tab, 1 TAB PO TID for 5 Days, #15 TAB Prov:FATUMA WISE MD 12/22/23 Diclofenac Potassium (Diclofenac Potassium) 50 Mg Tab, 1 TAB PO TIDP for 10 Days, #30 TAB Prov:FATUMA WISE MD 12/22/23 Past Medical History Others Past medical history includes hypertension, old history of laminectomy, history of bilateral lower extremity fasciotomy secondary to exercise related injury, history of appendectomy/nasal surgery. Also has history of GERD and anxiety disorder. Denies smoking/drug abuse Family History: No pertinent Hx Patient Family History: Diabetes mellitus G8 FATHER, Onset:Adolescence Smoker: No Hx (Negative) Alocohol: None Drugs: None Lives with: With family Review of Systems Constitutional: No symptom reported Ears, Nose, & Throat: No symptom reported Eyes: No symptom reported Pulmonary/Respiratory: No symptom reported Cardiovascular: No symptom reported All Other Systems Fourteen point review of system was performed. Relevant findings as per above and as per HPI. Otherwise negative. H&P Exam Vital Signs Vital Signs Date Time Temp Pulse Resp B/P (MAP) Pulse Ox O2 Delivery O2 Flow Rate FiO2 12/23/23 16:37 98.3 89 17 146/68 (94) 97 98.3 12/23/23 08:00 Room Air* 0 21 General Appeara: Well developed, Well nourished Head Exam: Normal inspection Neck Exam: Normal inspection Eye Exam: bilateral eye PERRL Nasal Exam: Normal inspection Mouth: Normal Inspection Pulmonary/Respiratory: Normal inspection, Normal breath sounds, Lungs clear Cardiovascular/Chest: Normal inspection, Regular rate Peripheral Pulses: 2+ carotid (R), 2+ carotid (L), 2+ femoral (R), 2+ femoral (L), 2+ dorsalis pedis (R), 2+ dorsalis pedis (L), 2+ Radial (R), 2+ Radial (L) Abdominal Exam: Normal bowel sounds, Soft, No tenderness, No hepatospenomegaly Neuro/Mental St: Alert, Oriented Appearance: Appropriate appearance Eye contact/ Speech: Cooperative Labs/Xrays Labs Test 12/23/23 09:59 12/22/23 16:30 12/22/23 09:49 12/22/23 08:35 Range/Units White Blood Count 7.7 # 4.4-10.8 10^3/uL Red Blood Count 4.73 4.5-5.90 10^6/uL Hemoglobin 15.1 13.5-17.5 g/dL Hematocrit 44.2 41.0-53.0 % Mean Corpuscular Volume 93.5 80.0-100.0 fL Mean Corpuscular Hemoglobin 31.9 28.0-32.0 pg Mean Corpuscular Hemoglobin Concent 34.1 32.0-36.0 g/dL Red Cell Distribution Width 14.6 H 11.8-14.3 % Platelet Count 222 140-450 10^3/uL Mean Platelet Volume 7.6 6.9-10.8 fL Neutrophils (%) (Auto) 74.3 37.0-80.0 % Lymphocytes (%) (Auto) 14.5 10.0-50.0 % Monocytes (%) (Auto) 10.2 0.0-12.0 % Eosinophils (%) (Auto) 0.7 0.0-7.0 % Basophils (%) (Auto) 0.3 0.0-2.0 % Neutrophils # (Auto) 5.7 1.6-8.6 10 ^3/uL Lymphocytes # (Auto) 1.1 0.4-5.4 10 ^3/uL Monocytes # (Auto) 0.8 0-1.3 10 ^3/uL Eosinophils # (Auto) 0.1 0-0.8 10 ^3/uL Basophils # (Auto) 0 0-0.2 10 ^3/uL Nucleated Red Blood Cells 0.1 % Sodium Level 139 136-145 mmol/L Potassium Level 3.7 3.5-5.1 mmol/L Chloride Level 107 98-107 mmol/L Carbon Dioxide Level 26 20-31 mmol/L Anion Gap 6 5-15 Blood Urea Nitrogen 8 L 9-23 mg/dL Creatinine 1.07 0.700-1.30 mg/dL Glomerular Filtration Rate Calc 95 >90 mL/min BUN/Creatinine Ratio 7.5 L 10.0-20.0 Serum Glucose 85 74-106 mg/dL Calcium Level 9.2 8.7-10.4 mg/dL Total Bilirubin 0.9 0.2-1.0 mg/dL Aspartate Amino Transferase (AST) 44 H 13-40 U/L Alanine Aminotransferase (ALT) 41 H 7-40 U/L Alkaline Phosphatase 50 46-116 U/L Total Protein 6.4 5.7-8.2 g/dL Albumin 4.0 3.2-4.8 g/dL D-Dimer, Quantitative 3.41 H 0.0-0.49 mg/L FEU Magnesium Level 2.5 1.6-2.6 mg/dL Plasma/Serum Blood Alcohol < 3.0 <10 mg/dL Urine Color Light-yellow Yellow Urine Clarity Hazy H Clear Urine pH 5.5 5.0-9.0 Urine Specific [place] 1.009 1.001-1.035 Urine Protein 1+ H Negative Urine Ketones Negative Negative Urine Blood 2+ H Negative /uL Urine Nitrite Negative Negative Urine Bilirubin Negative Negative Urine Urobilinogen Normal Negative mg/dL Urine Leukocyte Esterase Negative Negative /uL Urine RBC <1 0 - 3 /hpf Urine WBC 1 0 - 3 /hpf Urine Squamous Epithelial Cells Few <5 /hpf Urine Bacteria Few H None Seen /hpf Urine Hyaline Casts Few 0 - 2 /lpf Urine Mucus Few None Seen Urine Glucose Normal Normal mg/dL Urine Opiates Screen Neg NEGATIVE Urine Fentanyl Screen Neg NEGATIVE Urine Barbiturates Screen Neg NEGATIVE Urine Phencyclidine Screen Neg NEGATIVE Urine Amphetamines Screen Neg NEGATIVE Urine Benzodiazepines Screen Neg NEGATIVE Urine Cocaine Screen Neg NEGATIVE Urine Cannabinoids Screen Neg NEGATIVE Assessment/Plan Plan Patient is a 33-year-old gentleman who presented to the hospital for seizure activity. Cardiology was involved for cardiac aspects of care. Patient is known to our office and comes to our practice as outpatient. There has been no report of chest pain/shortness of breath. Has been no report of leg swellings/dyspnea on exertion/palpitations. There is questionable history of left ventricle hypertrophy (borderline). Not in acute distress. Lying flat in bed. No JVD. [place] and wet mucosa. No carotid bruit. Not using accessory muscles of breathing. Lungs are clear to auscultation. Cardiac: Regular, no thrill/gallop. Abdomen is soft. There is no hepatomegaly. Bowel sound is positive. Extremities do not reveal edema. Dorsalis pedis is 2+ bilateral Past medical history includes hypertension, old history of laminectomy, history of bilateral lower extremity fasciotomy secondary to exercise related injury, h istory of appendectomy/nasal surgery. Also has history of GERD and anxiety disorder. Denies smoking/drug abuse Echocardiogram of September (performed as outpatient) reported: LVEF of 50-55%, borderline concentric left ventricular hypertrophy, normal diastolic function of left ventricle mildly dilated both atria, trace MR. Exercise treadmill stress test of September 25, 2023 did not reveal ischemia/arrhythmia. Patient had very good access size tolerance (15 Mets) D-dimer: 3.41 Chest x-ray revealed: IMPRESSION: No acute cardiopulmonary disease. Shoulder x-ray revealed: IMPRESSION: 1. Anterior glenohumeral joint dislocation. Repeat shoulder x-ray revealed: FINDINGS/IMPRESSION: Interval reduction of previously seen dislocation. Hill-Sachs deformity is visualized. CT of the head revealed: IMPRESSION: No acute intracranial abnormality. CT angio of the chest revealed: Impression: 1. Suboptimal contrast opacification of the main pulmonary artery. No central pulmonary emboli, aortic aneurysm, or dissection. Cannot exclude smaller segmental or subsegmental embolism. 2. Scattered tree in bud groundglass nodules in both lungs, most prominent in the left lower lobe favor an infectious/inflammatory etiology. 3. Age indeterminate mild anterior wedge shaped compression fractures of T6 and T8. EKG revealed normal sinus rhythm with nonspecific ST-T changes Echocardiogram reported: Normal left ventricular size and dimension. Normal left ventricular systolic function estimated ejection fraction of 60%. There is a grade 1 diastolic dysfunction. Normal right ventricular size and dimension. Normal right ventricular systolic function. Normal biatrial size and dimension. Normal aortic valve structure and function. Normal mitral valve structure and function. Normal tricuspid valve function. The pulmonary valve is grossly normal. No pericardial effusion. Patient is a 33-year-old gentleman with good exercise tolerance and physically fit person who presented with seizure activity. Seizure is a new finding for him. Presentation is not considered cardiac. D-dimer has been somehow elevated. New onset seizure Hypertension History of laminectomy Abnormal D-dimer Shoulder dislocation (possibly related to seizures) Cardiac suggestion for management: Manage on telemetry Follow-up electrolytes and kidney function tests and correct abnormalities. Keep potassium above 4 and magnesium above 2 Follow-up vital signs and treat/managed high blood pressure Neurology evaluation for new onset seizures is suggested Orthopedic evaluation for shoulder dislocation is advised CT angio of the chest to rule out pulmonary emboli suggested Venous Doppler of lower extremities is suggested Cardiac-forte, the patient can be followed as outpatient Further evaluation and management depends on the above and clinical course Thank you for consultation A total of 75 minutes was spent reviewing the patient record, examining the patient, making a diagnostic and therapeutic plan, discussing this plan with medical personnel, following up on diagnostic studies and following the patient for clinical stability excluding any and all procedures. At least 50% of this time was spent in direct, [id number] contact. Thank you for allowing me to participate in this patient's care. Further recommendations will depend on patient's clinical course. Please do not hesitate to contact me if you have any questions or concerns. This medical document was created using electronic medical record system with [employer] computerized dictation system. Although this document has been carefully reviewed, there may still be some phonetic and typographical errors. These areas are purely typographical due to the imperfection of the software programs, and do not reflect any compromise in the patient's medical care. Plan discussed with: Patient, Spouse (at bedside), Other (nurse) RACH MORALEZ MD Dec 23, 2023 17:05
--- NOTE | 2023-12-23 18:03 | DVH ---
Bilateral lower extremity venous duplex Clinical History: DVT rule out requested by Comparison: None Technique: Duplex Doppler evaluation of the deep venous systems of both lower extremities from the common femora l veins to the popliteal veins including color Doppler and spectral/pulsed waveform analysis was perf ormed. Findings: RIGHT SIDE: The common femoral vein demonstrates appropriate compressibility and waveform variability. There is compressibility/patency of the great saphenous vein at the proximal thigh. The femoral vein demonstrates appropriate compressibility and waveform variability. The deep femoral vein demonstrates appropriate compressibility and waveform variability. The popliteal vein demonstrates appropriate compressibility and waveform variability. There is color flow at the tibioperoneal trunk and in the posterior tibial vein. A prominent, 3.3 x 0.4 cm benign-appearing right groin lymph node noted likely reactive in nature. LEFT SIDE: The common femoral vein demonstrates appropriate compressibility and waveform variability. There is compressibility/patency of the great saphenous vein at the proximal thigh. The femoral vein demonstrates appropriate compressibility and waveform variability. The deep femoral vein demonstrates appropriate compressibility and waveform variability. The popliteal vein demonstrates appropriate compressibility and waveform variability. There is color flow at the tibioperoneal trunk and in the posterior tibial vein. Impression: 1. No right or left femoropopliteal venous thrombosis. 2. Reactive right inguinal lymphadenopathy.
[2023-12-23] MEDS: CARVEDILOL 3.125 MG TAB PO SCH (21:23)
[2023-12-23] MEDS: DOXYCYCLINE 100 MG TAB/CAP PO SCH (21:23)
--- NOTE | 2023-12-23 22:37 | DVHINCON2 ---
Date of service: Dec 23, [address] Rivas Reason for Consultation Seizure disorder new onset History of Present Illness Mr. Clemens is a 33 years old right-handed gentleman with a history of hypertension, anxiety, he was brought to the [facility] [place] on 12/22/2023 with a chief company of seizure activity, at this time, he is alert, fully oriented, after interim him, I have also talked to his On 12/22/2023, he remember resting in his truck, but the next memory was waking up in the ambulance with tongue laceration, confused. His coworkers witness seizure-like activity in that he was shaking all over the body. He has never had similar problem before, he denies symptoms of olfactory hallucination, torrey vu, or spells of confusion He was no history of traumatic brain injury, intracranial infection, or family history of seizure disorder. He was no problem with drug/alcohol abuse, he does not use energy drink. He was intense chronic low back pain, but he has but does not use tramadol. 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 He was confirmed that he has bad insomnia because of anxiety, and elevated blood pressure He was chronic low back pain, he was to have a pain specialist. UDS, 12/22/2023: Negative Plasma alcohol, 12/22/2023: Normal UA, 12/22/2023: No UTI CBC, 12/23/2023: Unremarkable BMP, 12/23/2023: Unremarkable TG/HDL/LDL/HDL, 12/23/2023: 0.9/44/41/50 CT head, 12/22/2023: No acute intracranial abnormality Past Medical History Hypertension, anxiety, chronic low back pain Past Surgical History Lumbar spine surgery, tonsillectomy Family History: Diabetes mellitus G8 FATHER, Onset:Adolescence Family History Type 1 diabetes Social History He is not a tobacco smoker, he denies a history of alcohol or recreational substance abuse Allergies: Coded Allergies: No Known Drug Allergy (Verified Allergy, Unknown, 12/22/23) Home Meds Active Scripts Cyclobenzaprine Hcl (Cyclobenzaprine Hcl) 10 Mg Tab, 10 MG PO TID for 10 Days, #30 TAB Prov:FATUMA WISE MD 12/22/23 Hydrocodone-Acetaminophen (Hydrocodone Bitartrate/AC 5-325 mg) 1 Tab Tab, 1 TAB PO TID for 5 Days, #15 TAB Prov:FATUMA WISE MD 12/22/23 Diclofenac Potassium (Diclofenac Potassium) 50 Mg Tab, 1 TAB PO TIDP for 10 Days, #30 TAB Prov:FATUMA WISE MD 12/22/23 Current Medications Current Medications Medications (Trade) Dose Ordered Sig/Caren Route PRN Reason Start Time Stop Time Status Last Admin Enoxaparin Sodium (Lovenox) 40 mg DAILY SC 12/23/23 10:00 12/23/23 08:39 Ceftriaxone Sodium 50 ml @ 100 mls/hr DAILY@09 IV 12/23/23 09:00 12/23/23 08:37 Doxycycline Monohydrate (Vibramycin Tablet) 100 mg Q12HR PO 12/23/23 22:00 12/23/23 21:23 Carvedilol (Coreg Tablet) 3.125 mg BID PO 12/23/23 22:00 12/23/23 21:23 Lisinopril (Zestril Tablet) 5 mg DAILY PO 12/24/23 10:00 Review of Systems As above, the other systems are negative Vital Signs Vital Signs Date Time Temp Pulse Resp B/P (MAP) Pulse Ox O2 Delivery O2 Flow Rate FiO2 12/23/23 21:23 91 143/74 12/23/23 21:00 99.1 18 95 99.1 12/23/23 08:00 Room Air* 0 21 Physical Exam GENERAL EXAM: General: the patient is well developed and nourished. No acute distress. HEENT: Normocephalic, neck is supple, no carotid bruits. No mass. RESPIRATORY: Normal respiratory effort with symmetrical lung expansion. Lungs clear to auscultation. CARDIOVASCULAR: Regular rate and rhythm with no murmurs. S1, S2. ABDOMEN: Soft, nontender, normal bowel sound Tenderness in the low back NEUROLOGICAL: MENTAL STATUS: Awake and alert. Oriented to person, place, time and general circumstances. Able to give personal history SPEECH, LANGUAGE, HIGHER CORTICAL FUNCTION: no aphasia or dysathria. CRANIAL NERVES: #2: Intact visual romero to confrontation. The optic discs were sharp. #3,4,6: Pupils are equal, round and reactive. EOMs full and conjugate. No evoked nystagmus. #5: Facial sensation intact in all three divisions bilaterally. Mandibular strength intact. #7: Facial muscles symmetrical and strength intact. #8: Hearing grossly normal to voice. #9,10: Uvula and soft palate rise in the midline. Swallow and voice are normal. #11: Trapezius and sternomastoid strength intact bilaterally. #12: Tongue midline. No fasciculations or atrophy. SENSATION: Sensation to touch and pinprick is normal. MOTOR: Normal tone in the upper and lower extremity. Normal muscle bulk. No fasciculations. No abnormal movements or posturing. Muscle strength of the major groups in the upper extremities is 5/5. Muscle strength of the major groups in the lower extremities is 5/5. REFLEXES: Deep tendon reflexes normal and symmetrical. No pathological reflexes. CEREBELLAR/COORDINATION: Finger to nose and heel to ureña are normal bilaterally. GAIT/STATION: deferred Labs/Diagnostic Data Labs Test 12/23/23 09:59 12/22/23 16:30 12/22/23 09:49 12/22/23 08:35 Range/Units White Blood Count 7.7 # 4.4-10.8 10^3/uL Red Blood Count 4.73 4.5-5.90 10^6/uL Hemoglobin 15.1 13.5-17.5 g/dL Hematocrit 44.2 41.0-53.0 % Mean Corpuscular Volume 93.5 80.0-100.0 fL Mean Corpuscular Hemoglobin 31.9 28.0-32.0 pg Mean Corpuscular Hemoglobin Concent 34.1 32.0-36.0 g/dL Red Cell Distribution Width 14.6 H 11.8-14.3 % Platelet Count 222 140-450 10^3/uL Mean Platelet Volume 7.6 6.9-10.8 fL Neutrophils (%) (Auto) 74.3 37.0-80.0 % Lymphocytes (%) (Auto) 14.5 10.0-50.0 % Monocytes (%) (Auto) 10.2 0.0-12.0 % Eosinophils (%) (Auto) 0.7 0.0-7.0 % Basophils (%) (Auto) 0.3 0.0-2.0 % Neutrophils # (Auto) 5.7 1.6-8.6 10 ^3/uL Lymphocytes # (Auto) 1.1 0.4-5.4 10 ^3/uL Monocytes # (Auto) 0.8 0-1.3 10 ^3/uL Eosinophils # (Auto) 0.1 0-0.8 10 ^3/uL Basophils # (Auto) 0 0-0.2 10 ^3/uL Nucleated Red Blood Cells 0.1 % Sodium Level 139 136-145 mmol/L Potassium Level 3.7 3.5-5.1 mmol/L Chloride Level 107 98-107 mmol/L Carbon Dioxide Level 26 20-31 mmol/L Anion Gap 6 5-15 Blood Urea Nitrogen 8 L 9-23 mg/dL Creatinine 1.07 0.700-1.30 mg/dL Glomerular Filtration Rate Calc 95 >90 mL/min BUN/Creatinine Ratio 7.5 L 10.0-20.0 Serum Glucose 85 74-106 mg/dL Calcium Level 9.2 8.7-10.4 mg/dL Total Bilirubin 0.9 0.2-1.0 mg/dL Aspartate Amino Transferase (AST) 44 H 13-40 U/L Alanine Aminotransferase (ALT) 41 H 7-40 U/L Alkaline Phosphatase 50 46-116 U/L B-Type Natriuretic Peptide 30.57 0-100 pg/mL Total Protein 6.4 5.7-8.2 g/dL Albumin 4.0 3.2-4.8 g/dL D-Dimer, Quantitative 3.41 H 0.0-0.49 mg/L FEU Magnesium Level 2.5 1.6-2.6 mg/dL Plasma/Serum Blood Alcohol < 3.0 <10 mg/dL Urine Color Light-yellow Yellow Urine Clarity Hazy H Clear Urine pH 5.5 5.0-9.0 Urine Specific [place] 1.009 1.001-1.035 Urine Protein 1+ H Negative Urine Ketones Negative Negative Urine Blood 2+ H Negative /uL Urine Nitrite Negative Negative Urine Bilirubin Negative Negative Urine Urobilinogen Normal Negative mg/dL Urine Leukocyte Esterase Negative Negative /uL Urine RBC <1 0 - 3 /hpf Urine WBC 1 0 - 3 /hpf Urine Squamous Epithelial Cells Few <5 /hpf Urine Bacteria Few H None Seen /hpf Urine Hyaline Casts Few 0 - 2 /lpf Urine Mucus Few None Seen Urine Glucose Normal Normal mg/dL Urine Opiates Screen Neg NEGATIVE Urine Fentanyl Screen Neg NEGATIVE Urine Barbiturates Screen Neg NEGATIVE Urine Phencyclidine Screen Neg NEGATIVE Urine Amphetamines Screen Neg NEGATIVE Urine Benzodiazepines Screen Neg NEGATIVE Urine Cocaine Screen Neg NEGATIVE Urine Cannabinoids Screen Neg NEGATIVE Assessment New onset grand mal seizure, likely triggered by insomnia Insomnia, likely secondary to anxiety Anxiety Chronic low back pain Plan/Recommendation Monitoring Supportive treatment Telemetry EEG MR brain scan Ativan for seizure activity Preventive seizure treatment is not indicated at this time A trial of Lexapro for anxiety Ativan for anxiety Current pain management He has been advised not to drive and he is cleared I have discussed time with him, and then later with his discussing about his diagnosis, and the likely triggering factors I have discussed with him and his about his driving restriction, especially commercial vehicle restriction We have also discussed above common seizure etiology, triggering factors DMV report in the chart Further address his low back pain as outpatient Further address his anxiety as outpatient More recommendation per clinical course This is a long and complicated consultation. Progress: Poor This medical document was created using an electronic medical record system with [employer] dictation system. Although this document has been carefully reviewed, there may still be some phonetic and typographical errors. These areas are purely typographical due to imperfections of the software programs, and do not reflect any compromise in the patient's medical care. Plan discussed with: Patient, Spouse, Other TIFFANIE HUMPHREY MD Dec 23, 2023 22:37
[2023-12-23] MEDS ORDERED: LORazepam 2MG/ML-1ML VIAL IV PRN (23:15)
[2023-12-23] MEDS ORDERED: TEMAZEPAM 15 MG CAP PO PRN (23:15)
[2023-12-23] MEDS ORDERED: LORazepam 0.5 MG TAB PO PRN (23:15)
[2023-12-24 01:00] VITALS: BP 135/77; PULSE 77; RESP 21; TEMP 98.8; O2SAT 97
[2023-12-24 05:00] VITALS: BP 160/70; PULSE 69; RESP 18; TEMP 98.1; O2SAT 96
--- NOTE | 2023-12-24 06:24 | DVHPN2 ---
Progress Note - Dictate Date Seen: Dec 24, 2023 Medical Necessity Reason Pt with a Central, PICC or Fol: No vital signs Vital Sign Date Time Temp Pulse Resp B/P (MAP) Pulse Ox O2 Delivery O2 Flow Rate FiO2 12/24/23 05:00 98.1 69 18 160/70 (100) 96 98.1 12/23/23 23:22 Room Air* 0 21 Total Intake and Output 12/23/23 12/23/23 12/24/23 15:00 23:00 07:00 Intake Total 50 ml 700 ml 900 ml Balance 50 ml 700 ml 900 ml medications Current Medications Medications Dose Ordered Sig/Caren Route Start Time Stop Time Status Last Admin Dose Admin Lorazepam 1 mg Q1HP PRN IV 12/22/23 19:30 12/23/23 21:24 1 MG Sodium Chloride 10 ml Q8HR IV 12/22/23 22:00 12/24/23 05:45 10 ML Acetaminophen/ Hydrocodone Bitart 1 tab Q4HP PRN PO 12/22/23 19:30 12/23/23 11:56 1 TAB Ondansetron HCl 4 mg Q4HP PRN IV 12/22/23 19:30 Docusate Sodium 100 mg BIDPRN PRN PO 12/22/23 19:30 Acetaminophen 650 mg Q6HP PRN PO 12/22/23 19:30 Nitroglycerin 0.4 mg Q5MINP PRN SL 12/22/23 19:30 Morphine Sulfate 2 mg Q30M PRN IV 12/22/23 19:30 Enoxaparin Sodium 40 mg DAILY SC 12/23/23 10:00 12/23/23 08:39 40 MG Ceftriaxone Sodium 50 ml @ 100 mls/hr DAILY@09 IV 12/23/23 09:00 12/23/23 08:37 100 MLS/HR Doxycycline Monohydrate 100 mg Q12HR PO 12/23/23 22:00 12/23/23 21:23 100 MG Carvedilol 3.125 mg BID PO 12/23/23 22:00 12/23/23 21:23 3.125 MG Lisinopril 5 mg DAILY PO 12/24/23 10:00 Lorazepam 0.5 mg Q8HP PRN PO 12/23/23 23:15 Temazepam 15 mg HS PRN PO 11/5/24 23:15 Citalopram Hydrobromide 10 mg DAILY PO 12/24/23 10:00 Lorazepam 1 mg ONCE PRN IV 12/23/23 23:15 laboratory and microbiology Laboratory Tests 12/23/23 09:59 Test 12/23/23 09:59 Range/Units Serum Glucose 85 74-106 mg/dL Assessment/Plan Patient is a 33-year-old gentleman who presented to the hospital for seizure activity. Cardiology was involved for cardiac aspects of care. Patient is known to our office and comes to our practice as outpatient. There has been no report of chest pain/shortness of breath. Has been no report of leg swellings/dyspnea on exertion/palpitations. There is questionable history of left ventricle hypertrophy (borderline). Not in acute distress. Lying flat in bed. No JVD. [place] and wet mucosa. No carotid bruit. Not using accessory muscles of breathing. Lungs are clear to auscultation. Cardiac: Regular, no thrill/gallop. Abdomen is soft. There is no hepatomegaly. Bowel sound is positive. Extremities do not reveal edema. Dorsalis pedis is 2+ bilateral Past medical history includes hypertension, old history of laminectomy, history of bilateral lower extremity fasciotomy secondary to exercise related injury, history of appendectomy/nasal surgery. Also has history of GERD and anxiety disorder. Denies smoking/drug abuse Echocardiogram of September (performed as outpatient) reported: LVEF of 50-55%, borderline concentric left ventricular hypertrophy, normal diastolic function of left ventricle mildly dilated both atria, trace MR. Exercise treadmill stress test of September 25, 2023 did not reveal ischemia/arrhythmia. Patient had very good access size tolerance (15 Mets) D-dimer: 3.41 BNP: 30.57 Chest x-ray revealed: IMPRESSION: No acute cardiopulmonary disease. Shoulder x-ray revealed: IMPRESSION: 1. Anterior glenohumeral joint dislocation. Repeat shoulder x-ray revealed: FINDINGS/IMPRESSION: Interval reduction of previously seen dislocation. Hill-Sachs deformity is visualized. CT of the head revealed: IMPRESSION: No acute intracranial abnormality. CT angio of the chest revealed: Impression: 1. Suboptimal contrast opacification of the main pulmonary artery. No central pulmonary emboli, aortic aneurysm, or dissection. Cannot exclude smaller segmental or subsegmental embolism. 2. Scattered tree in bud groundglass nodules in both lungs, most prominent in the left lower lobe favor an infectious/inflammatory etiology. 3. Age indeterminate mild anterior wedge shaped compression fractures of T6 and T8. Venous duplex of bilateral lower extremities: Impression: 1. No right or left femoropopliteal venous thrombosis. 2. Reactive right inguinal lymphadenopathy. EKG revealed normal sinus rhythm with nonspecific ST-T changes Echocardiogram reported: Normal left ventricular size and dimension. Normal left ventricular systolic function estimated ejection fraction of 60%. There is a grade 1 diastolic dysfunction. Normal right ventricular size and dimension. Normal right ventricular systolic function. Normal biatrial size and dimension. Normal aortic valve structure and function. Normal mitral valve structure and function. Normal tricuspid valve function. The pulmonary valve is grossly normal. No pericardial effusion. Patient is a 33-year-old gentleman with good exercise tolerance and physically fit person who presented with seizure activity. Seizure is a new finding for him. Presentation is not considered cardiac. D-dimer has been somehow elevated. Venous duplex of lower ext and CTA of lungs have been unrevealing. Patient is seen by Neurology New onset seizure Hypertension History of laminectomy Abnormal D-dimer Shoulder dislocation (possibly related to seizures) Cardiac suggestion for management: Manage on telemetry Follow-up electrolytes and kidney function tests and correct abnormalities. Keep potassium above 4 and magnesium above 2 Follow-up vital signs and treat/managed high blood pressure Neurology follow up Orthopedic evaluation for shoulder dislocation is advised CT angio of the chest to rule out pulmonary emboli suggested Cardiac-forte, the patient can be followed as outpatient Further evaluation and management depends on the above and clinical course A total of 55 minutes was spent reviewing the patient record, examining the patient, making a diagnostic and therapeutic plan, discussing this plan with medical personnel, following up on diagnostic studies and following the patient for clinical stability excluding any and all procedures. At least 50% of this time was spent in direct, [id number] contact. Thank you for allowing me to participate in this patient's care. Further recommendations will depend on patient's clinical course. Please do not hesitate to contact me if you have any questions or concerns. This medical document was created using electronic medical record system with [employer] dictation system. Although this document has been carefully reviewed, there may still be some phonetic and typographical errors. These areas are purely typographical due to the imperfection of the software programs, and do not reflect any compromise in the patient's medical care. Plan discussed with: Patient, Other (nurse) RACH MORALEZ MD Dec 24, 2023 06:24
[2023-12-24 08:02] VITALS: PULSE 89
[2023-12-24 08:18] VITALS: PULSE 83; RESP 17; O2SAT 97
[2023-12-24] MEDS ORDERED: IOHEXOL 350 MG/ML 100ML IJ ONE (08:23)
--- NOTE | 2023-12-24 09:10 | DVH ---
MRI BRAIN WITHOUT CONTRAST CLINICAL HISTORY: POSS SZ TECHNIQUE: Multiplanar, multisequence MR images of the brain without intravenous contrast. Comparison: CT HEAD WITHOUT CONTRAST on DOS: 12/22/23 FINDINGS: [Findings] There is no restricted diffusion. There are few nonspecific scattered punctate hyperintense T2 foci i n the bilateral frontal lobe white matter. There is no evidence of hemorrhage, mass, mass effect or m idline shift. There is no hydrocephalus or extra-axial fluid collection. The visualized intracranial vasculature demonstrates appropriate flow-voids. The sagittal midline structures appear unremarkable. The craniocervical junction is within normal limits. The calvarium demonstrates normal marrow signal . There is retention cyst and mild mucosal thickening in the right sphenoid sinus. Mastoid air cells are clear. IMPRESSION: 1. Few nonspecific scattered punctate hyperintense T2 foci in the bilateral frontal lobe white matter . These can be seen with migraine vasculopathy. Clinical correlation is recommended. 2. Retention cyst in the right sphenoid sinus. HS:Y
[2023-12-24 09:20] VITALS: BP 139/85; PULSE 83; RESP 17; TEMP 98.2; O2SAT 94
[2023-12-24] MEDS: LISINOPRIL 5 MG TAB PO SCH (09:21)
[2023-12-24] MEDS: CITALOPRAM HYDROBR 20 MG TAB PO SCH (09:25)
--- NOTE | 2023-12-24 11:52 | DVHPN2 ---
Reviewed: Care Plan, H&P, Labs, Medications, Previous Orders, Radiology Changes from previous H/P or p: No Changes Eyes: No Pain, No Vision change, No Conjunctivae inflammation, No Eyelid inflammation, No Other, No Redness ENT: No Ear pain, No Ear discharge, No Nose pain, No Nose discharge, No Nose congestion, No Mouth pain, No Mouth swelling, No Throat pain, No Throat swelling, No Other Cardiovascular: No Chest Pain, No Palpitations, No Orthopnea, No Paroxysmal Noc. Dyspnea, No Edema, No Lt Headedness, No Other Respiratory: No Cough, No Dry, No Shortness of breath, No SOB with excertion, No Wheezing, No Hemoptysis, No Pleuritic Pain, No Sputum, No Other Gastrointestinal: No Nausea, No Vomiting, No Abdominal Pain, No Diarrhea, No Constipation, No Melena, No Hematochezia, No Other Genitourinary: No Dysuria, No Frequency, No Incontinence, No Hematuria, No Retention, No Other Musculoskeletal: No other, No neck pain; shoulder pain (Left); No arm pain; b ack pain (Low); No hand pain, No leg pain, No foot pain Skin: No Rash, No Lesions, No Jaundice, No Bruising, No Other Objective Vitals Vital Signs Date Time Temp Pulse Resp B/P (MAP) Pulse Ox O2 Delivery O2 Flow Rate FiO2 12/24/23 09:21 139/85 12/24/23 09:20 98.2 83 17 94 98.2 12/24/23 08:18 Room Air* 0 21 Intake/Output Intake and Output 12/24/23 07:00 Intake Total 1650 ml Balance 1650 ml Intake Oral 1600 ml IV Total 50 ml # Voids 7 # Bowel Movements 1 Medications Current Medications Medications Dose Ordered Sig/Caren Route Start Time Stop Time Status Last Admin Dose Admin Lorazepam 1 mg Q1HP PRN IV 12/22/23 19:30 12/24/23 09:25 1 MG Sodium Chloride 10 ml Q8HR IV 12/22/23 22:00 12/24/23 05:45 10 ML Acetaminophen/ Hydrocodone Bitart 1 tab Q4HP PRN PO 12/22/23 19:30 12/23/23 11:56 1 TAB Ondansetron HCl 4 mg Q4HP PRN IV 12/22/23 19:30 Docusate Sodium 100 mg BIDPRN PRN PO 12/22/23 19:30 Acetaminophen 650 mg Q6HP PRN PO 12/22/23 19:30 Nitroglycerin 0.4 mg Q5MINP PRN SL 12/22/23 19:30 Morphine Sulfate 2 mg Q30M PRN IV 12/22/23 19:30 Enoxaparin Sodium 40 mg DAILY SC 12/23/23 10:00 12/24/23 09:22 40 MG Ceftriaxone Sodium 50 ml @ 100 mls/hr DAILY@09 IV 12/23/23 09:00 12/24/23 09:19 100 MLS/HR Doxycycline Monohydrate 100 mg Q12HR PO 12/23/23 22:00 12/24/23 09:21 100 MG Carvedilol 3.125 mg BID PO 12/23/23 22:00 12/23/23 21:23 3.125 MG Lisinopril 5 mg DAILY PO 12/24/23 10:00 12/24/23 09:21 5 MG Lorazepam 0.5 mg Q8HP PRN PO 12/23/23 23:15 Temazepam 15 mg HS PRN PO 12/23/23 23:15 Citalopram Hydrobromide 10 mg DAILY PO 12/24/23 10:00 Lorazepam 1 mg ONCE PRN IV 12/23/23 23:15 Laboratory Results Laboratory Tests 12/23/23 09:59 Urinalysis Test 12/22/23 08:35 Urine Color Light-yellow (Yellow) Urine Clarity Hazy (Clear) H Urine pH 5.5 (5.0-9.0) Urine Specific [place] 1.009 (1.001-1.035) Urine Protein 1+ (Negative) H Urine Ketones Negative (Negative) Urine Blood 2+ /uL (Negative) H Urine Nitrite Negative (Negative) Urine Bilirubin Negative (Negative) Urine Urobilinogen Normal mg/dL (Negative) Urine Leukocyte Esterase Negative /uL (Negative) Urine RBC <1 /hpf (0 - 3) Urine WBC 1 /hpf (0 - 3) Urine Squamous Epithelial Cells Few /hpf (<5) Urine Bacteria Few /hpf (None Seen) H Urine Hyaline Casts Few /lpf (0 - 2) Urine Mucus Few (None Seen) Urine Glucose Normal mg/dL (Normal) Labs and/or images reviewed: Labs reviewed by me, Image(s) reviewed by me Assessment/Plan Assessment/Plan New onset seizures: Ativan p.r.n., CT head negative, MRI brain negative Neurology consult for Dr. Rodriguez treated, advised no antiseizure meds Open wound of tongue due to bite Anterior dislocation left shoulder status post relocation in the emergency room Chronic back pain on tramadol Elevated D-dimer 3.2: PE ruled out DVT ruled out Possible aspiration pneumonia left lower lobe: Rocephin IV doxycycline p.o. Hypertension Anxiety: Celexa Chronic alcohol abuse Urine Drug screen negative History of left ventricular hypertrophy: Echocardiogram 50 percent ejection fraction and normal cardiology consult by Dr. Cervantes appreciated Discussed the findings of the investigations and discharge plan with the patient with the his at bed side. Plan discussed with: Patient My Orders Orders - EDIL VARGAS MD Procedure Category Date Status Time * Neurology Consult CONS 12/23/23 Transmitted 12:28 Doxycycline Tablet PHA 12/23/23 In Process (Vibramycin Tablet) 22:00 Echo 2d Mode Cardiac US 12/23/23 Resulted DOP 12:40 Date of Service: Dec 24, 2023 Billing Provider: EDIL VARGAS MD Common Visit Codes: [id number] INP/OBS CARE(HIGH) EDIL VARGAS MD Dec 24, 2023 11:52
[2023-12-24] MEDS ORDERED: DOXY100C79 PO (11:53)
[2023-12-24] MEDS ORDERED: CITA10TA8 PO (11:53)
--- NOTE | 2023-12-24 11:58 | DVHDS2 ---
Discharge Summary Date of Admission Dec 22, 2023 at 19:25 Date of Discharge: Dec 24, 2023 Admitting Diagnosis Seizures Wounds: Bite on the tongue Labs/Diagnostic Data: Laboratory Results Test 12/23/23 09:59 12/22/23 16:30 12/22/23 09:49 12/22/23 08:35 White Blood Count 7.7 10^3/uL (4.4-10.8) Red Blood Count 4.73 10^6/uL (4.5-5.90) Hemoglobin 15.1 g/dL (13.5-17.5) Hematocrit 44.2 % (41.0-53.0) Mean Corpuscular Volume 93.5 fL (80.0-100.0) Mean Corpuscular Hemoglobin 31.9 pg (28.0-32.0) Mean Corpuscular Hemoglobin Concent 34.1 g/dL (32.0-36.0) Red Cell Distribution Width 14.6 % (11.8-14.3) Platelet Count 222 10^3/uL (140-450) Mean Platelet Volume 7.6 fL (6.9-10.8) Neutrophils (%) (Auto) 74.3 % (37.0-80.0) Lymphocytes (%) (Auto) 14.5 % (10.0-50.0) Monocytes (%) (Auto) 10.2 % (0.0-12.0) Eosinophils (%) (Auto) 0.7 % (0.0-7.0) Basophils (%) (Auto) 0.3 % (0.0-2.0) Neutrophils # (Auto) 5.7 10 ^3/uL (1.6-8.6) Lymphocytes # (Auto) 1.1 10 ^3/uL (0.4-5.4) Monocytes # (Auto) 0.8 10 ^3/uL (0-1.3) Eosinophils # (Auto) 0.1 10 ^3/uL (0-0.8) Basophils # (Auto) 0 10 ^3/uL (0-0.2) Nucleated Red Blood Cells 0.1 % Sodium Level 139 mmol/L (136-145) Potassium Level 3.7 mmol/L (3.5-5.1) Chloride Level 107 mmol/L (98-107) Carbon Dioxide Level 26 mmol/L (20-31) Anion Gap 6 (5-15) Blood Urea Nitrogen 8 mg/dL (9-23) Creatinine 1.07 mg/dL (0.700-1.30) Glomerular Filtration Rate Calc 95 mL/min (>90) BUN/Creatinine Ratio 7.5 (10.0-20.0) Serum Glucose 85 mg/dL (74-106) Calcium Level 9.2 mg/dL (8.7-10.4) Total Bilirubin 0.9 mg/dL (0.2-1.0) Aspartate Amino Transferase (AST) 44 U/L (13-40) Alanine Aminotransferase (ALT) 41 U/L (7-40) Alkaline Phosphatase 50 U/L (46-116) B-Type Natriuretic Peptide 30.57 pg/mL (0-100) Total Protein 6.4 g/dL (5.7-8.2) Albumin 4.0 g/dL (3.2-4.8) D-Dimer, Quantitative 3.41 mg/L FEU (0.0-0.49) Magnesium Level 2.5 mg/dL (1.6-2.6) Plasma/Serum Blood Alcohol < 3.0 mg/dL (<10) Urine Color Light-yellow (Yellow) Urine Clarity Hazy (Clear) Urine pH 5.5 (5.0-9.0) Urine Specific [place] 1.009 (1.001-1.035) Urine Protein 1+ (Negative) Urine Ketones Negative (Negative) Urine Blood 2+ /uL (Negative) Urine Nitrite Negative (Negative) Urine Bilirubin Negative (Negative) Urine Urobilinogen Normal mg/dL (Negative) Urine Leukocyte Esterase Negative /uL (Negative) Urine RBC <1 /hpf (0 - 3) Urine WBC 1 /hpf (0 - 3) Urine Squamous Epithelial Cells Few /hpf (<5) Urine Bacteria Few /hpf (None Seen) Urine Hyaline Casts Few /lpf (0 - 2) Urine Mucus Few (None Seen) Urine Glucose Normal mg/dL (Normal) Urine Opiates Screen Neg (NEGATIVE) Urine Fentanyl Screen Neg (NEGATIVE) Urine Barbiturates Screen Neg (NEGATIVE) Urine Phencyclidine Screen Neg (NEGATIVE) Urine Amphetamines Screen Neg (NEGATIVE) Urine Benzodiazepines Screen Neg (NEGATIVE) Urine Cocaine Screen Neg (NEGATIVE) Urine Cannabinoids Screen Neg (NEGATIVE) Other Laboratory Tests 12/23/23 09:59 Brief Hx & Hospital Course: 33-year-old male with a history of hypertension anxiety and chronic back pain on tramadol came in complaining of possible seizures at home. Admitted given Ativan p.r.n. CT head negative MRI brain negative neurology consult by Dr. Rodriguez advised no antiseizure medications. Placed on Celexa for possible anxiety patient had possible aspiration pneumonia left lower lobe treated with Rocephin and doxycycline D-dimer was elevated 3.2 PE ruled out DVT ruled out cleared for discharge by Neurology patient was advised not to drive until cleared by neurologist prescription for Celexa and doxycycline transmitted to the pharmacy. The patient did not have any seizures after admission. at the bedside at the time of discharge and agreeable with the discharge plan, Consults/Reason for consult Neurology Dr. Rodriguez Cardiology Dr. Cervantes Operations or Procedures CT head MRI brain Chest x-ray Condition at Discharge: Fair Final Diagnosis/Problems List New onset seizures: Ativan p.r.n., CT head negative, MRI brain negative Neurology consult for Dr. Rodriguez treated, advised no antiseizure meds Open wound of tongue due to bite Anterior dislocation left shoulder status post relocation in the emergency room Chronic back pain on tramadol Elevated D-dimer 3.2: PE ruled out DVT ruled out Possible aspiration pneumonia left lower lobe: Rocephin IV doxycycline p.o. Hypertension Anxiety: Celexa Chronic alcohol abuse Urine Drug screen negative History of left ventricular hypertrophy: Echocardiogram 50 percent ejection fraction and normal cardiology consult by Dr. Cervantes appreciated Discharge Disposition: Home Discharge Instruct/Medications Diet: Cardiac 2g Na,low cholest Activity: See Comment Activity comment: Do Not drive until cleared by Neurologist Follow Up/Referral: Follow up Up with your primary Dr Follow up with the Neurology Dr. Rodriguez in two weeks Medications: Doxycycline Celexa Transmitted to the pharmacy 39 (Time Taken for discharge summary 39 minutes) Discharge Statement: "Patient was advised to return to the ER or call 911 if any headaches, dizziness, shortness of breath, chest pain, abdominal pain, bleeding, fevers, or worsening of medical condition. Patient was counseled about treatment plan, medications, possible side effects, patientverbalized understanding. All questions were answered to the best of my ability. This discharge took greater then 30 minutes in planning, reviewing documentation, counseling the patient, and discussing with other team members." ASSESSMENT ASSESSMENT Hospital Course Uneventful Assessment New onset seizures: Ativan p.r.n., CT head negative, MRI brain negative Neurology consult for Dr. Rodriguez treated, advised no antiseizure meds Open wound of tongue due to bite Anterior dislocation left shoulder status post relocation in the emergency room Chronic back pain on tramadol Elevated D-dimer 3.2: PE ruled out DVT ruled out Possible aspiration pneumonia left lower lobe: Rocephin IV doxycycline p.o. Hypertension Anxiety: Celexa Chronic alcohol abuse Urine Drug screen negative History of left ventricular hypertrophy: Echocardiogram 50 percent ejection fraction and normal cardiology consult by Dr. Cervantes appreciated Date of Service: Dec 24, 2023 Billing Provider: EDIL VARGAS MD Common Visit Codes: 12999-TSB/[id number] DISCH DAY >30min EDIL VARGAS MD Dec 24, 2023 11:58
[2023-12-24 13:11] VITALS: BP 161/95; PULSE 87; RESP 17; TEMP 98.1; O2SAT 99
--- NOTE | 2023-12-25 00:23 | DVHEEG2 ---
Neurology EEG Procedural Note Procedural Note EXAM DATE: 12/24/2023 REFERRING DOCTOR: Dr. Humphrey TECHNIQUE: Eighteen channels of EEG, 2 channels of EOG, and 1 channel of EKG were recorded using the [employer] 10/20 system. CLINICAL DATA: The patient was referred for an EEG evaluation for the evidence of seizure disorder. MEDICATIONS: See chart BACKGROUND ACTIVITY: While the patient was awake, the background activity consisted of well regulated []Hz rhythmic waveforms, symmetrically distributed over both posterior quadrants and was reactive to eye opening. ACTIVATION: Hyperventilation: Not done Photic Stimulation: No photic convulsive response Sleep: Noticed IMPRESSION: This is a normal EEG. No focal, lateralized, or epileptiform features are noted. If clinically indicated to rule out a seizure disorder, recommend repeat EEG with sleep deprivation. The EKG channel showed a regular heart rate of 84 per minute. [place] [address] TIFFANIE HUMPHREY MD Dec 25, 2023 00:23
== END 2023-12-24 13:03 | disposition home or self-care (01) | DRG 100 ==
LOC: EDBD 08:26 → ER 08:26 → TELE 19:25 → TELE-WESTW 23:09
PROVIDERS: ADMIT Nurse Practitioner Family; ATTEND Family Medicine
PROC: 0PSDXZZ Reposition Left Humeral Head, External Approach (ICD-10-PCS; principal; 2023-12-22)
DX: G40.409 Other generalized epilepsy and epileptic syndromes, not intractable, without status epilepticus (principal); J69.0 Pneumonitis due to inhalation of food and vomit; Z59.02 Unsheltered homelessness; S01.552A Open bite of oral cavity, initial encounter; S43.015A Anterior dislocation of left humerus, initial encounter; R31.29 Other microscopic hematuria; I10 Essential (primary) hypertension; G89.29 Other chronic pain; M54.50 Low back pain, unspecified; F41.9 Anxiety disorder, unspecified; K21.9 Gastro-esophageal reflux disease without esophagitis; S01.512A Laceration without foreign body of oral cavity, initial encounter; F10.10 Alcohol abuse, uncomplicated; Y90.9 Presence of alcohol in blood, level not specified; X58.XXXA Exposure to other specified factors, initial encounter; Y93.89 Activity, other specified; Y92.89 Other specified places as the place of occurrence of the external cause; Y99.8 Other external cause status; Z90.49 Acquired absence of other specified parts of digestive tract; Z83.3 Family history of diabetes mellitus
CPT/HCPCS: 23650; 36415; 70450; 70551; 71046; 71275; 73030; 80053; 80307; 80320; 81001; 83735; 83880; 85025; 85379; 93005; 93306; 93970; 95819; 96374; 96375; G0378; J1885; J2250; J2704